=== PATIENT | female | born 1945 | race Caucasian/White ===

== ENCOUNTER 2016-07-26 12:32 | Inpatient (IN) | payer MEDICARE, MEDICAID ==
[~2016-07-26] VITALS: Ht 160 cm; Wt 57.9 kg
[~2016-07-26 12:32] MED LIST: ALBUTEROL SULFAT3 M3 IH; COMPAZINE 110 MG/TAB PO; EFFEXOR 75M75 MG/TAB PO; EFFEXOR XR37.5 MG/CA PO; EFFEXOR-XR150 MG PO; FIORICET 325 MG1 TA1 PO; HEADACHE RELIE1 EACH PO; KLONOPIN 0.5MG0.5 MG PO; KLONOPIN 1MG1 MG PO; MAG-OX 400400 MG/TAB PO; MEDROL 4MG DOSPA4 MG PO; NEURONTIN600 MG/TAB PO; NORCO 325 MG-7.1 TAB PO; PAMELOR 25MG25 MG PO; PREDNISONE10 MG PO; RT SPIRIVA18 MCG IH; SYNTHROID0.088 MG/T PO; SYNTHROID0.1 MG/TAB PO; THE MEDICINE S200 M2 PO; VENTOLIN0.09 MG IH; VERAPAMIL180 MG/TAB PO; ZANAFLEX2 MG PO; ZOCOR 20MG20 MG PO; ZOFRAN 4MG T4 MG/TAB PO
[2016-07-26 12:49] LABS: BASO # 0.1 (0.0-0.2); BASO % 0.6 % (0.0-2.0); EOS # 0.1 (0.0-0.7); EOS % 0.9 % (0-4.0); GRAN # 6.8 (1.4-6.5); GRAN % 59.4 % (42.2-75.2); HEMATOCRIT 47.1 % (37.0-47.0); HEMOGLOBIN 15.3 g/dl (12.5-16.0); LYMPH # 3.5 (1.2-3.4); LYMPH % 30.8 % (20.0-51.0); MEAN CELL VOLUME 94 fl (80.0-100.0); MEAN CORPUSCULAR HEMOGLOBIN 30 pg (27.0-31.0); MEAN CORPUSCULAR HGB CONC 33 g/dl (33.0-37.0); MEAN PLATELET VOLUME 10.9 fl (7.4-10.4); MONO # 0.9 (0.1-0.6); MONO % 7.9 % (1.7-9.3); PLATELET COUNT 289 K/mm3 (130-400); RED BLOOD COUNT 5.03 M/mm3 (4.10-5.30); WHITE BLOOD COUNT 11.4 K/mm3 (4.8-10.8)
[2016-07-26 13:04] LABS: ADJUSTED CALCIUM 10.5 mg/dL (8.4-10.2); ALANINE AMINOTRANSFERASE 40 U/L (9-52); ALBUMIN 4.6 gm/dL (3.5-5.0); ALKALINE PHOSPHATASE 109 U/L (50-136); ANION GAP 10 mmol/L (7-16); BILIRUBIN,TOTAL 0.8 mg/dL (0.0-1.0); BLOOD UREA NITROGEN 22 mg/dL (7-17); C-REACTIVE PROTEIN 2.2 mg/dL (0.0-0.9); CARBON DIOXIDE 31 mmol/L (22-30); CHLORIDE 96 mmol/L (98-107); CREATININE, serum 0.72 mg/dL (0.52-1.25); GLUCOSE 114 mg/dL (74-106); POTASSIUM 4.3 mmol/L (3.4-5.0); SODIUM 137 mmol/L (137-145); TOTAL PROTEIN 8.7 gm/dL (6.4-8.2)
[2016-07-26 13:13] LABS: B-TYPE NATRIURETIC PEPTIDE 66 pg/mL (0-125)
[2016-07-26 13:16] LABS: TROPONIN-I < 0.012 ng/mL (0.000-0.034)
[2016-07-26 15:25] VITALS: BP 132/87; PULSE 109; TEMP 98
[2016-07-26 19:29] VITALS: BP 129/72; PULSE 107; TEMP 98
[2016-07-26 23:23] VITALS: BP 115/75; PULSE 96; TEMP 98.7
[2016-07-27 03:18] VITALS: BP 124/91; PULSE 103; TEMP 98.4
[2016-07-27 07:18] LABS: HEMATOCRIT 42.6 % (37.0-47.0); HEMOGLOBIN 13.9 g/dl (12.5-16.0); MEAN CELL VOLUME 95 fl (80.0-100.0); MEAN CORPUSCULAR HEMOGLOBIN 31 pg (27.0-31.0); MEAN CORPUSCULAR HGB CONC 33 g/dl (33.0-37.0); MEAN PLATELET VOLUME 11.4 fl (7.4-10.4); PLATELET COUNT 288 K/mm3 (130-400); RED BLOOD COUNT 4.51 M/mm3 (4.10-5.30); REDCELL DISTRIBUTION WIDTH-CV 13.2 % (11.5-14.5); WHITE BLOOD COUNT 8.7 K/mm3 (4.8-10.8)
[2016-07-27 07:46] VITALS: BP 134/81; PULSE 113; TEMP 97.8
[2016-07-27 09:28] LABS: CALCIUM 9.2 mg/dL (8.4-10.2); CREATININE, serum 0.48 mg/dL (0.52-1.25); POTASSIUM 3.8 mmol/L (3.4-5.0)
[2016-07-27 12:06] VITALS: BP 129/87; PULSE 105; TEMP 98
[2016-07-27 16:13] VITALS: BP 131/87; PULSE 104; TEMP 97.5
[2016-07-27 19:07] VITALS: BP 126/71; PULSE 87; TEMP 98
[2016-07-27 23:07] VITALS: BP 125/75; PULSE 83; TEMP 98.1
[2016-07-28 03:19] VITALS: BP 134/75; PULSE 104; TEMP 97.7
[2016-07-28 07:29] LABS: HEMATOCRIT 42.1 % (37.0-47.0); HEMOGLOBIN 13.4 g/dl (12.5-16.0); MEAN CELL VOLUME 95 fl (80.0-100.0); MEAN CORPUSCULAR HEMOGLOBIN 30 pg (27.0-31.0); MEAN CORPUSCULAR HGB CONC 32 g/dl (33.0-37.0); MEAN PLATELET VOLUME 11.5 fl (7.4-10.4); PLATELET COUNT 283 K/mm3 (130-400); RED BLOOD COUNT 4.43 M/mm3 (4.10-5.30); REDCELL DISTRIBUTION WIDTH-CV 13.2 % (11.5-14.5); WHITE BLOOD COUNT 12.8 K/mm3 (4.8-10.8)
[2016-07-28 07:37] LABS: CALCIUM 9.8 mg/dL (8.4-10.2); CREATININE, serum 0.6 mg/dL (0.52-1.25); POTASSIUM 3.8 mmol/L (3.4-5.0)
[2016-07-28 07:42] VITALS: BP 131/68; PULSE 96; TEMP 98.1
[2016-07-28 11:31] VITALS: BP 142/96; PULSE 90; TEMP 97.5
[2016-07-28] MEDS ORDERED: OMNICEF 300MG300 MG PO (11:57)
[2016-07-28] MEDS ORDERED: ZITHROMAX 250M250 MG PO (11:57)
[2016-07-28] MEDS ORDERED: PREDNISONE20 MG PO (11:58)
[2016-07-28] MEDS ORDERED: CHERATUSSIN AC120 ML PO (11:59)
== END 2016-07-28 14:30 | disposition home or self-care (01) | DRG 189 ==
LOC: COL.ER 12:32 → MEDICAL 14:17
PROVIDERS: Emergency Medicine; Internal Medicine
DX: J96.21 Acute and chronic respiratory failure with hypoxia (principal); J18.9 Pneumonia, unspecified organism; J44.1 Chronic obstructive pulmonary disease with (acute) exacerbation; E83.52 Hypercalcemia; E78.5 Hyperlipidemia, unspecified; Z87.891 Personal history of nicotine dependence; Z66 Do not resuscitate; Z99.81 Dependence on supplemental oxygen
CPT/HCPCS: 99232-AI; 99239; G0378; J0456; J0696; J1650; J2405; J2920; J2930; J7030; J7512

== ENCOUNTER → 2017-04-03 | Outpatient (CLI) | payer MEDICARE, MEDICAID ==
[~2017-04-03] MED LIST changes: +CHERATUSSIN AC120 ML PO; +OMNICEF 300MG300 MG PO; +PREDNISONE20 MG PO; +ZITHROMAX 250M250 MG PO
== END ==
LOC: MC.RAD 09:54
DX: Z12.31 Encounter for screening mammogram for malignant neoplasm of breast (principal)

== ENCOUNTER 2017-05-27 13:24 | Emergency (ER) | payer MEDICARE, MEDICAID ==
[~2017-05-27] VITALS: Ht 160 cm; Wt 62.3 kg
[2017-05-27 13:36] VITALS: BP 159/103; TEMP 98
[2017-05-27 15:48] LABS: BASO # 0.1 (0.0-0.2); EOS # 0.1 (0.0-0.7); EOS % 1.4 % (0-4.0); GRAN # 3.6 (1.4-6.5); HEMOGLOBIN 15.9 g/dl (12.5-16.0); LYMPH # 3.9 (1.2-3.4); LYMPH % 46.1 % (20.0-51.0); MEAN CELL VOLUME 93 fl (80.0-100.0); MEAN CORPUSCULAR HEMOGLOBIN 30 pg (27.0-31.0); MEAN CORPUSCULAR HGB CONC 32 g/dl (33.0-37.0); MEAN PLATELET VOLUME 10.8 fl (7.4-10.4); MONO # 0.7 (0.1-0.6); MONO % 8.3 % (1.7-9.3); PLATELET COUNT 293 K/mm3 (130-400); RED BLOOD COUNT 5.25 M/mm3 (4.10-5.30); WHITE BLOOD COUNT 8.4 K/mm3 (4.8-10.8)
[2017-05-27 15:53] LABS: ADJUSTED CALCIUM 8.8 mg/dL (8.4-10.2); ALBUMIN 5.5 gm/dL (3.5-5.0); BILIRUBIN,TOTAL 0.9 mg/dL (0.0-1.0); CREATININE, serum 0.78 mg/dL (0.52-1.25); POTASSIUM 3.6 mmol/L (3.4-5.0); TOTAL PROTEIN 9.2 gm/dL (6.4-8.2)
[2017-05-27 16:04] LABS: INFLUENZA A NEGATIVE; INFLUENZA B NEGATIVE
[2017-05-27] MEDS ORDERED: ZOFRAN ODT4 MG PO (16:26)
[2017-05-27 17:20] VITALS: PULSE 79
== END 2017-05-27 17:20 | disposition home or self-care (01) ==
LOC: COL.ER 13:24
PROVIDERS: Emergency Medicine
DX: J44.9 Chronic obstructive pulmonary disease, unspecified (principal); Z98.51 Tubal ligation status; Z87.891 Personal history of nicotine dependence
CPT/HCPCS: J2405; J7030

== ENCOUNTER 2017-06-09 11:25 | Emergency (ER) | payer MEDICARE, MEDICAID ==
[~2017-06-09] VITALS: Ht 160 cm; Wt 62.3 kg
[~2017-06-09 11:25] MED LIST changes: +ZOFRAN ODT4 MG PO
[2017-06-09 11:27] VITALS: TEMP 98.1
[2017-06-09 12:42] LABS: BASO # 0.1 (0.0-0.2); BASO % 0.8 % (0.0-2.0); EOS # 0.1 (0.0-0.7); EOS % 1.1 % (0-4.0); GRAN # 5.2 (1.4-6.5); GRAN % 56.4 % (42.2-75.2); HEMATOCRIT 50.2 % (37.0-47.0); HEMOGLOBIN 16.4 g/dl (12.5-16.0); LYMPH # 3.2 (1.2-3.4); LYMPH % 34.3 % (20.0-51.0); MEAN CELL VOLUME 95 fl (80.0-100.0); MEAN CORPUSCULAR HEMOGLOBIN 31 pg (27.0-31.0); MEAN CORPUSCULAR HGB CONC 33 g/dl (33.0-37.0); MONO # 0.7 (0.1-0.6); MONO % 7.2 % (1.7-9.3); PLATELET COUNT 243 K/mm3 (130-400); RED BLOOD COUNT 5.28 M/mm3 (4.10-5.30); WHITE BLOOD COUNT 9.2 K/mm3 (4.8-10.8)
[2017-06-09 13:25] LABS: ADJUSTED CALCIUM 8.9 mg/dL (8.4-10.2); ALANINE AMINOTRANSFERASE 39 U/L (9-52); ALBUMIN 4.9 gm/dL (3.5-5.0); ALKALINE PHOSPHATASE 91 U/L (50-136); ANION GAP 8 mmol/L (7-16); BILIRUBIN,TOTAL 0.7 mg/dL (0.0-1.0); BLOOD UREA NITROGEN 13 mg/dL (7-17); CALCIUM 9.6 mg/dL (8.4-10.2); CARBON DIOXIDE 34 mmol/L (22-30); CHLORIDE 91 mmol/L (98-107); GLUCOSE 108 mg/dL (74-106); POTASSIUM 4.3 mmol/L (3.4-5.0); SODIUM 134 mmol/L (137-145); TOTAL PROTEIN 8.3 gm/dL (6.4-8.2)
[2017-06-09 13:40] LABS: TROPONIN-I < 0.012 ng/mL (0.000-0.034)
[2017-06-09 14:35] VITALS: BP 152/77; PULSE 88
== END 2017-06-09 14:36 | disposition home or self-care (01) ==
LOC: COL.ER 11:25
PROVIDERS: Emergency Medicine; Nurse Practitioner Primary Care
DX: G43.909 Migraine, unspecified, not intractable, without status migrainosus (principal); J44.9 Chronic obstructive pulmonary disease, unspecified; E03.9 Hypothyroidism, unspecified; Z87.891 Personal history of nicotine dependence
CPT/HCPCS: J1170; J2550; J7030

== ENCOUNTER 2017-09-10 06:47 | Outpatient (CLI) | payer MEDICARE, MEDICAID ==
[~2017-09-10] VITALS: Ht 157.5 cm; Wt 62.9 kg
[2017-09-10] VITALS (17 sets, daily range): BP systolic 109–149; BP diastolic 69–101; PULSE 88–100
[~2017-09-10 06:47] MED LIST changes: +ASPIRIN E.C. 8181 MG PO; +DEPAKOTE 250MG250 MG PO; +INCRUSE EL62.5 MCG/A IH; +MAGNESIUM250 M1 PO; +PROAIR HFA0.09 MG/AC IH
== END 2017-09-10 12:52 | disposition home or self-care (01) ==
LOC: COL.RAD 06:47
DX: C34.31 Malignant neoplasm of lower lobe, right bronchus or lung (principal)
CPT/HCPCS: J3010

== ENCOUNTER → 2017-10-12 | Outpatient (CLI) | payer MEDICARE, MEDICAID | LOC: COL.PUL 07:35 | DX: Z01.811 Encounter for preprocedural respiratory examination (principal); C34.31 Malignant neoplasm of lower lobe, right bronchus or lung; J44.9 Chronic obstructive pulmonary disease, unspecified; I10 Essential (primary) hypertension ==

== ENCOUNTER 2017-11-12 06:13 | Emergency (ER) | payer MEDICARE, MEDICAID ==
[~2017-11-12] VITALS: Ht 160 cm; Wt 60.5 kg
[2017-11-12 06:18] VITALS: TEMP 98.3
[2017-11-12 06:54] LABS: HEMOGLOBIN 11.4 g/dl (12.5-16.0); MEAN CELL VOLUME 94 fl (80.0-100.0); MEAN CORPUSCULAR HEMOGLOBIN 31 pg (27.0-31.0); MEAN CORPUSCULAR HGB CONC 33 g/dl (33.0-37.0); MEAN PLATELET VOLUME 9.5 fl (7.4-10.4); PLATELET COUNT 278 K/mm3 (130-400); RED BLOOD COUNT 3.67 M/mm3 (4.10-5.30); REDCELL DISTRIBUTION WIDTH-CV 13.2 % (11.5-14.5)
[2017-11-12 06:56] LABS: HEMATOCRIT 34.6 % (37.0-47.0)
[2017-11-12 07:02] LABS: ALBUMIN 3.8 gm/dL (3.5-5.0); BILIRUBIN,TOTAL 0.6 mg/dL (0.0-1.0); CALCIUM 9.1 mg/dL (8.4-10.2); CREATININE, serum 0.49 mg/dL (0.52-1.25); MAGNESIUM 1.6 mg/dL (1.6-2.3); TOTAL PROTEIN 7.6 gm/dL (6.4-8.2)
[2017-11-12 07:25] LABS: BAND 8 % (0-10); EOSINOPHIL 3 % (0-4); LYMPHOCYTE 19 % (20.0-51.0); NEUTROPHILS 68 % (42.0-75.2)
[2017-11-12 07:26] LABS: HYPOCHROMIA 1+; PLATELET ESTIMATE NORMAL (NORMAL)
[2017-11-12 07:27] LABS: STOMATOCYTE 1+
[2017-11-12 07:47] LABS: COLLECTION METHOD CLEAN CATCH
[2017-11-12 07:53] LABS: MUCOUS Present /lpf; PH 7 (5-8); SQUAMOUS EPITHELIAL 0-2 /hpf; URINE APPEARANCE Clear; URINE BACTERIA None Seen /hpf; URINE BILIRUBIN Negative (NEGATIVE); URINE BLOOD Negative (NEGATIVE); URINE COLOR Yellow; URINE GLUCOSE Negative (NEGATIVE); URINE KETONE 1+ (NEGATIVE); URINE LEUKOCYTE ESTERASE Negative (NEGATIVE); URINE NITRATE Negative (NEGATIVE); URINE PROTEIN(semi-quant) Negative (NEGATIVE); URINE RBC 0-2 /hpf; URINE UROBILINOGEN Negative (NEGATIVE)
[2017-11-12] MEDS ORDERED: ZOFRAN 4MG T4 MG/TAB PO (09:48)
[2017-11-12] MEDS ORDERED: K-DUR20 MEQ PO (09:50)
[2017-11-12 10:30] VITALS: BP 137/91; PULSE 95
== END 2017-11-12 11:00 | disposition home or self-care (01) ==
LOC: COL.ER 06:13
PROVIDERS: Emergency Medicine
DX: C34.90 Malignant neoplasm of unspecified part of unspecified bronchus or lung (principal); E87.6 Hypokalemia; J44.9 Chronic obstructive pulmonary disease, unspecified; K21.9 Gastro-esophageal reflux disease without esophagitis; G43.909 Migraine, unspecified, not intractable, without status migrainosus; E78.5 Hyperlipidemia, unspecified; Z98.51 Tubal ligation status; Z87.891 Personal history of nicotine dependence
CPT/HCPCS: J1100; J1644; J2060; J2405; J2765; J3010; J3480; J7030

== ENCOUNTER 2017-12-19 09:06 | Emergency (ER) | payer MEDICARE, MEDICAID ==
[~2017-12-19] VITALS: Ht 7.6 cm; Wt 53.2 kg
[~2017-12-19 09:06] MED LIST changes: +K-DUR20 MEQ PO
[2017-12-19 09:15] VITALS: TEMP 98.2
[2017-12-19 10:00] LABS: BASO # 0.1 (0.0-0.2); BASO % 0.7 % (0.0-2.0); EOS % 0.5 % (0-4.0); GRAN % 54.7 % (42.2-75.2); HEMATOCRIT 39.6 % (37.0-47.0); LYMPH # 2.2 (1.2-3.4); LYMPH % 30.6 % (20.0-51.0); MEAN CELL VOLUME 100 fl (80.0-100.0); MEAN CORPUSCULAR HEMOGLOBIN 33 pg (27.0-31.0); MEAN CORPUSCULAR HGB CONC 33 g/dl (33.0-37.0); MEAN PLATELET VOLUME 9.4 fl (7.4-10.4); PLATELET COUNT 207 K/mm3 (130-400); RED BLOOD COUNT 3.96 M/mm3 (4.10-5.30); REDCELL DISTRIBUTION WIDTH-CV 17.4 % (11.5-14.5)
[2017-12-19 10:02] LABS: COLLECTION METHOD CLEAN CATCH
[2017-12-19 10:15] LABS: ALANINE AMINOTRANSFERASE 35 U/L (9-52); ALBUMIN 4.6 gm/dL (3.5-5.0); ALKALINE PHOSPHATASE 101 U/L (50-136); ANION GAP 16 mmol/L (7-16); AST,SGOT 39 U/L (15-37); BILIRUBIN,TOTAL 0.7 mg/dL (0.0-1.0); BLOOD UREA NITROGEN 10 mg/dL (7-17); C-REACTIVE PROTEIN 1.2 mg/dL (0.0-0.9); CALCIUM 10.4 mg/dL (8.4-10.2); CARBON DIOXIDE 32 mmol/L (22-30); CHLORIDE 91 mmol/L (98-107); CREATININE, serum 0.67 mg/dL (0.52-1.25); GLUCOSE 134 mg/dL (74-106); POTASSIUM 4.6 mmol/L (3.4-5.0); SODIUM 139 mmol/L (137-145); TOTAL PROTEIN 9.1 gm/dL (6.4-8.2)
[2017-12-19 10:24] LABS: LIPASE 17 U/L (23-300)
[2017-12-19 10:24] LABS: MUCOUS Present /lpf; PH 6 (5-8); URINE APPEARANCE Hazy; URINE BACTERIA None Seen /hpf; URINE BILIRUBIN Negative (NEGATIVE); URINE BLOOD Negative (NEGATIVE); URINE COLOR Yellow; URINE GLUCOSE Negative (NEGATIVE); URINE KETONE 1+ (NEGATIVE); URINE LEUKOCYTE ESTERASE 2+ (NEGATIVE); URINE NITRATE Negative (NEGATIVE); URINE PROTEIN(semi-quant) 1+ (NEGATIVE); URINE RBC 0-2 /hpf
[2017-12-19 10:39] LABS: TROPONIN-I < 0.012 ng/mL (0.000-0.034)
[2017-12-19] MEDS ORDERED: ZOFRAN 4MG T4 MG/TAB PO (11:01)
[2017-12-19 11:57] VITALS: BP 125/86; PULSE 102
[2017-12-19] MEDS ORDERED: EXCEDRIN1 TAB PO (15:39)
[2017-12-19] MEDS ORDERED: BENADRYL25 M2 PO (15:40)
[2017-12-19] MEDS ORDERED: IBU800 M1 PO (15:40)
[2017-12-19] MEDS ORDERED: PAMELOR75 MG PO (15:41)
[2017-12-19] MEDS ORDERED: COMPAZINE 110 MG/TAB PO (15:42)
[2017-12-19] MEDS ORDERED: RT SPIRIVA18 MCG IH (15:43)
[2017-12-19] MEDS ORDERED: ZANAFLEX2 MG PO (15:44)
[2017-12-19] MEDS ORDERED: EFFEXOR-XR150 MG PO (15:45)
[2017-12-19] MEDS ORDERED: VERAPAMIL180 MG/TAB PO (15:45)
[2017-12-19] MEDS ORDERED: KETOROLAC30 MG/ML (15:47)
[2017-12-19] MEDS ORDERED: MAG-OX 400400 MG/TAB PO (15:47)
[2017-12-19] MEDS ORDERED: BOTOX200 U (15:48)
[2017-12-22] MEDS ORDERED: LEVAQUIN 750MG750 M1 PO (08:47)
== END 2017-12-19 12:03 | disposition home or self-care (01) ==
LOC: COL.ER 09:06
PROVIDERS: Emergency Medicine
DX: R11.2 Nausea with vomiting, unspecified (principal); I10 Essential (primary) hypertension; R10.9 Unspecified abdominal pain; J44.9 Chronic obstructive pulmonary disease, unspecified; F41.9 Anxiety disorder, unspecified; F32.9 Major depressive disorder, single episode, unspecified; Z87.891 Personal history of nicotine dependence; Z85.118 Personal history of other malignant neoplasm of bronchus and lung
CPT/HCPCS: J2060; J2405; J7030

== ENCOUNTER 2018-01-31 08:48 | Emergency (ER) | payer MEDICARE, MEDICAID ==
[~2018-01-31] VITALS: Ht 157.5 cm; Wt 55.0 kg
[~2018-01-31 08:48] MED LIST changes: +BENADRYL25 M2 PO; +BOTOX200 U; +EXCEDRIN1 TAB PO; +IBU800 M1 PO; +KETOROLAC30 MG/ML; +LEVAQUIN 750MG750 M1 PO; +PAMELOR75 MG PO
[2018-01-31 08:51] VITALS: TEMP 97.7
[2018-01-31 09:30] LABS: BASO % 0.4 % (0.0-2.0); EOS # 0.1 (0.0-0.7); EOS % 0.9 % (0-4.0); GRAN # 5.1 (1.4-6.5); HEMOGLOBIN 12.7 g/dl (12.5-16.0); LYMPH # 1.6 (1.2-3.4); LYMPH % 20.8 % (20.0-51.0); MEAN CELL VOLUME 97 fl (80.0-100.0); MEAN CORPUSCULAR HEMOGLOBIN 33 pg (27.0-31.0); MEAN CORPUSCULAR HGB CONC 33 g/dl (33.0-37.0); MEAN PLATELET VOLUME 9.9 fl (7.4-10.4); MONO # 0.9 (0.1-0.6); MONO % 11.5 % (1.7-9.3); PLATELET COUNT 243 K/mm3 (130-400); REDCELL DISTRIBUTION WIDTH-CV 12.5 % (11.5-14.5)
[2018-01-31 09:37] LABS: ALBUMIN 4.4 gm/dL (3.5-5.0); BILIRUBIN,TOTAL 0.6 mg/dL (0.0-1.0); CALCIUM 10.2 mg/dL (8.4-10.2); CREATININE, serum 0.55 mg/dL (0.52-1.25); POTASSIUM 4.1 mmol/L (3.4-5.0); TOTAL PROTEIN 8.1 gm/dL (6.4-8.2)
[2018-01-31] MEDS ORDERED: ZOFRAN 4MG T4 MG/TAB PO (11:36)
[2018-01-31 12:07] VITALS: BP 140/94; PULSE 94
== END 2018-01-31 12:30 | disposition home or self-care (01) ==
LOC: COL.ER 08:48
PROVIDERS: Emergency Medicine
DX: G43.909 Migraine, unspecified, not intractable, without status migrainosus (principal); R11.10 Vomiting, unspecified; J44.9 Chronic obstructive pulmonary disease, unspecified; C34.91 Malignant neoplasm of unspecified part of right bronchus or lung
CPT/HCPCS: J1200; J1885; J2765; J7030

== ENCOUNTER 2018-02-10 14:18 | Outpatient (CLI) | payer MEDICARE, MEDICAID ==
[~2018-02-10] VITALS: Ht 157.5 cm; Wt 47.2 kg
[~2018-02-10 14:18] MED LIST changes: +PHENERGAN 25 TA25 MG PO
[2018-02-10 14:54] VITALS: BP 146/89; PULSE 95; TEMP 97.7
== END 2018-02-10 17:00 | disposition home or self-care (01) ==
LOC: EUO 14:18
DX: R11.2 Nausea with vomiting, unspecified (principal); E86.0 Dehydration
CPT/HCPCS: J7030

== ENCOUNTER 2018-02-22 12:12 | Observation (INO) | payer MEDICARE, MEDICAID ==
[~2018-02-22] VITALS: Ht 160 cm; Wt 53.6 kg
[2018-02-22 13:44] LABS: BASO % 0.5 % (0.0-2.0); EOS # 0.1 (0.0-0.7); EOS % 1.3 % (0-4.0); GRAN # 6.5 (1.4-6.5); GRAN % 75.7 % (42.2-75.2); HEMATOCRIT 35.4 % (37.0-47.0); HEMOGLOBIN 12.3 g/dl (12.5-16.0); LYMPH # 1.2 (1.2-3.4); LYMPH % 14.3 % (20.0-51.0); MEAN CELL VOLUME 92 fl (80.0-100.0); MEAN CORPUSCULAR HEMOGLOBIN 32 pg (27.0-31.0); MEAN CORPUSCULAR HGB CONC 35 g/dl (33.0-37.0); MEAN PLATELET VOLUME 9.5 fl (7.4-10.4); MONO # 0.7 (0.1-0.6); MONO % 7.9 % (1.7-9.3); PLATELET COUNT 301 K/mm3 (130-400); RED BLOOD COUNT 3.86 M/mm3 (4.10-5.30); REDCELL DISTRIBUTION WIDTH-CV 12.4 % (11.5-14.5)
[2018-02-22 13:53] LABS: INR 1.1 (0.8-3.0); PROTHROMBIN TIME 12.7 SECONDS (9.7-12.8)
[2018-02-22 13:55] LABS: PARTIAL THROMBOPLASTIN TIME 37.3 SECONDS (26.0-37.0)
[2018-02-22 13:56] LABS: ALBUMIN 4.1 gm/dL (3.5-5.0); BILIRUBIN,TOTAL 0.4 mg/dL (0.0-1.0); CALCIUM 9.4 mg/dL (8.4-10.2); CREATININE, serum 0.59 mg/dL (0.52-1.25); MAGNESIUM 1.9 mg/dL (1.6-2.3); PHOSPHOROUS 3.4 mg/dL (2.5-4.5); TOTAL PROTEIN 7.8 gm/dL (6.4-8.2)
[2018-02-22 14:34] LABS: VALPROIC ACID (DEPAKENE) 10.5 ug/mL (50.0-100.0)
[2018-02-22 16:21] VITALS: BP 148/84; PULSE 98; TEMP 97.4
[2018-02-22 19:22] VITALS: BP 118/83; PULSE 95; TEMP 98.4
[2018-02-22 23:27] VITALS: BP 105/69; PULSE 89; TEMP 98.2
[2018-02-23 03:25] VITALS: BP 94/53; PULSE 82; TEMP 97.3
[2018-02-23 07:33] VITALS: BP 101/53; PULSE 87; TEMP 98.1
[2018-02-23 08:03] LABS: BASO % 0.4 % (0.0-2.0); EOS # 0.1 (0.0-0.7); EOS % 2.6 % (0-4.0); GRAN # 3.4 (1.4-6.5); GRAN % 63.8 % (42.2-75.2); LYMPH # 1.2 (1.2-3.4); LYMPH % 22.6 % (20.0-51.0); MEAN CELL VOLUME 94 fl (80.0-100.0); MEAN CORPUSCULAR HGB CONC 34 g/dl (33.0-37.0); MEAN PLATELET VOLUME 9.7 fl (7.4-10.4); MONO # 0.5 (0.1-0.6); MONO % 10.2 % (1.7-9.3); PLATELET COUNT 243 K/mm3 (130-400); RED BLOOD COUNT 3.16 M/mm3 (4.10-5.30); REDCELL DISTRIBUTION WIDTH-CV 12.6 % (11.5-14.5)
[2018-02-23 08:14] LABS: HEMATOCRIT 29.8 % (37.0-47.0); MEAN CORPUSCULAR HEMOGLOBIN 32 pg (27.0-31.0)
[2018-02-23 08:18] LABS: CALCIUM 8.2 mg/dL (8.4-10.2); CREATININE, serum 0.54 mg/dL (0.52-1.25); POTASSIUM 3.9 mmol/L (3.4-5.0)
[2018-02-23 11:40] VITALS: BP 107/66; PULSE 96; TEMP 98.6
[2018-02-23 16:54] VITALS: BP 111/66; PULSE 83; TEMP 98.6
[2018-02-23 20:02] VITALS: BP 103/67; PULSE 83; TEMP 98.6
[2018-02-24 00:34] VITALS: BP 123/70; PULSE 84; TEMP 98.1
[2018-02-24 03:29] VITALS: BP 122/72; PULSE 91; TEMP 98.1
[2018-02-24 06:52] VITALS: BP 123/82; PULSE 92; TEMP 98.8
[2018-02-24 08:47] LABS: CALCIUM 8.9 mg/dL (8.4-10.2); CREATININE, serum 0.52 mg/dL (0.52-1.25); POTASSIUM 4.1 mmol/L (3.4-5.0)
== END 2018-02-24 11:14 | disposition home or self-care (01) ==
LOC: COL.ER 12:12 → MEDICAL 14:34
PROVIDERS: Emergency Medicine; Family Medicine
DX: E87.1 Hypo-osmolality and hyponatremia (principal); E87.8 Other disorders of electrolyte and fluid balance, not elsewhere classified; E86.0 Dehydration; R11.2 Nausea with vomiting, unspecified; C34.90 Malignant neoplasm of unspecified part of unspecified bronchus or lung; G43.909 Migraine, unspecified, not intractable, without status migrainosus; J44.9 Chronic obstructive pulmonary disease, unspecified; E03.9 Hypothyroidism, unspecified; Z92.21 Personal history of antineoplastic chemotherapy; Z92.3 Personal history of irradiation; F32.9 Major depressive disorder, single episode, unspecified; Z87.891 Personal history of nicotine dependence; G47.33 Obstructive sleep apnea (adult) (pediatric); E78.5 Hyperlipidemia, unspecified
CPT/HCPCS: G0378; J1200; J1644; J1885; J2550; J3475; J7030

== ENCOUNTER 2018-02-26 11:41 | Outpatient (CLI) | payer MEDICARE, MEDICAID ==
[2018-02-26 12:19] LABS: CALCIUM 9.6 mg/dL (8.4-10.2); CREATININE, serum 0.54 mg/dL (0.52-1.25); POTASSIUM 3.8 mmol/L (3.4-5.0)
[2018-02-26 13:36] VITALS: BP 123/81; PULSE 92; TEMP 97.7
== END 2018-02-26 15:24 | disposition home or self-care (01) ==
LOC: EUO 11:41
PROVIDERS: Family Medicine
DX: C34.90 Malignant neoplasm of unspecified part of unspecified bronchus or lung (principal); J44.9 Chronic obstructive pulmonary disease, unspecified; E87.1 Hypo-osmolality and hyponatremia
CPT/HCPCS: J7030

== ENCOUNTER 2018-03-11 15:25 | Outpatient (CLI) | payer MEDICARE, MEDICAID ==
[~2018-03-11 15:25] MED LIST changes: +MIRTAZAPINE7.5 MG PO; +MULTI VITAMINS1 TAB PO; +PROTONIX 40MG T40 MG PO
[2018-03-11 16:16] VITALS: BP 131/78; PULSE 83; TEMP 99
== END 2018-03-11 17:37 | disposition home or self-care (01) ==
LOC: EUO 15:25
DX: E86.0 Dehydration (principal)
CPT/HCPCS: J1644; J7030

== ENCOUNTER 2018-03-13 09:54 | Outpatient (CLI) | payer MEDICARE, MEDICAID ==
[~2018-03-13] VITALS: Ht 160 cm; Wt 51.0 kg
[2018-03-13 11:24] VITALS: BP 141/92; PULSE 91; TEMP 98.2
== END 2018-03-13 12:00 | disposition home or self-care (01) ==
LOC: EUO 09:54
DX: E86.0 Dehydration (principal)
CPT/HCPCS: J7040

== ENCOUNTER 2018-05-21 09:28 | Emergency (ER) | payer MEDICARE, MEDICAID ==
[~2018-05-21] VITALS: Ht 160 cm; Wt 50.0 kg
[2018-05-21 09:34] VITALS: TEMP 98.5
[2018-05-21] MEDS ORDERED: TRELEGY ELLIPT1 EACH IH (10:10)
[2018-05-21] MEDS ORDERED: PROAMATINE2.5 MG PO (10:11)
[2018-05-21] MEDS ORDERED: PROTONIX 40MG T40 MG PO (10:14)
[2018-05-21] MEDS ORDERED: CORTEF 10MG TAB10 MG PO (10:14)
[2018-05-21] MEDS ORDERED: MEGACE ORAL40 MG/ML PO (10:23)
[2018-05-21] MEDS ORDERED: FLORINEF ACETA0.1 MG PO (10:25)
[2018-05-21] MEDS ORDERED: ROBAXIN 50500 MG/TAB PO (10:30)
[2018-05-21] MEDS ORDERED: MIRALAX PA17 GM/Dose PO (10:34)
[2018-05-21] MEDS ORDERED: PRAVACHOL 40MG40 MG PO (10:35)
[2018-05-21] MEDS ORDERED: COLACE 100100 MG/CAP PO (10:37)
[2018-05-21] MEDS ORDERED: SYNTHROID0.1 MG/TAB PO (10:39)
[2018-05-21] MEDS ORDERED: MUCUS RELIEF200 MG PO (10:40)
[2018-05-21] MEDS ORDERED: K-TAB10 (10:41)
[2018-05-21] MEDS ORDERED: TYLENOL 325MG325 MG PO (10:42)
[2018-05-21 10:52] LABS: BASO % 0.4 % (0.0-2.0); EOS # 0.1 (0.0-0.7); EOS % 1.3 % (0-4.0); GRAN # 6.3 (1.4-6.5); GRAN % 65.6 % (42.2-75.2); HEMATOCRIT 40.6 % (37.0-47.0); HEMOGLOBIN 12.9 g/dl (12.5-16.0); LYMPH # 2.1 (1.2-3.4); LYMPH % 21.8 % (20.0-51.0); MEAN CELL VOLUME 95 fl (80.0-100.0); MEAN CORPUSCULAR HEMOGLOBIN 30 pg (27.0-31.0); MEAN CORPUSCULAR HGB CONC 32 g/dl (33.0-37.0); MEAN PLATELET VOLUME 10.4 fl (7.4-10.4); MONO % 10.2 % (1.7-9.3); PLATELET COUNT 294 K/mm3 (130-400); RED BLOOD COUNT 4.29 M/mm3 (4.10-5.30); REDCELL DISTRIBUTION WIDTH-CV 14.6 % (11.5-14.5)
[2018-05-21 10:56] LABS: INR 1.3 (0.8-3.0); PROTHROMBIN TIME 14.6 SECONDS (9.7-12.8)
[2018-05-21 11:02] LABS: ALBUMIN 4.3 gm/dL (3.5-5.0); BILIRUBIN,TOTAL 0.4 mg/dL (0.0-1.0); CALCIUM 10.8 mg/dL (8.4-10.2); CREATININE, serum 0.61 mg/dL (0.52-1.25); TOTAL PROTEIN 8.3 gm/dL (6.4-8.2)
[2018-05-21 14:33] VITALS: BP 126/95; PULSE 111
== END 2018-05-21 14:40 | disposition home or self-care (01) ==
LOC: COL.ER 09:28
PROVIDERS: Emergency Medicine
DX: S70.02XA Contusion of left hip, initial encounter (principal); J44.9 Chronic obstructive pulmonary disease, unspecified; F17.210 Nicotine dependence, cigarettes, uncomplicated; Z85.118 Personal history of other malignant neoplasm of bronchus and lung; Z79.51 Long term (current) use of inhaled steroids; W19.XXXA Unspecified fall, initial encounter; Y92.009 Unspecified place in unspecified non-institutional (private) residence as the place of occurrence of the external cause

== ENCOUNTER → 2018-09-03 | Outpatient (CLI) | payer MEDICARE, MEDICAID ==
[~2018-09-03] MED LIST changes: +COLACE 100100 MG/CAP PO; +CORTEF 10MG TAB10 MG PO; +FLORINEF ACETA0.1 MG PO; +K-TAB10; +MEGACE ORAL40 MG/ML PO; +MIRALAX PA17 GM/Dose PO; +MUCUS RELIEF200 MG PO; +PRAVACHOL 40MG40 MG PO; +PROAMATINE2.5 MG PO; +ROBAXIN 50500 MG/TAB PO; +TRELEGY ELLIPT1 EACH IH; +TYLENOL 325MG325 MG PO
== END ==
LOC: ZCOL.LAB 15:30
DX: E03.9 Hypothyroidism, unspecified (principal)

== ENCOUNTER → 2018-09-13 | Outpatient (CLI) | payer MEDICARE, MEDICAID ==
[2018-09-13 11:30] LABS: BASO # 0.1 (0.0-0.2); BASO % 0.7 % (0.0-2.0); EOS # 0.1 (0.0-0.7); EOS % 1.7 % (0-4.0); GRAN # 3.6 (1.4-6.5); GRAN % 51.4 % (42.2-75.2); HEMATOCRIT 37.9 % (37.0-47.0); HEMOGLOBIN 12.1 g/dl (12.5-16.0); LYMPH # 2.5 (1.2-3.4); LYMPH % 35.7 % (20.0-51.0); MEAN CELL VOLUME 93 fl (80.0-100.0); MEAN CORPUSCULAR HEMOGLOBIN 30 pg (27.0-31.0); MEAN CORPUSCULAR HGB CONC 32 g/dl (33.0-37.0); MEAN PLATELET VOLUME 10.5 fl (7.4-10.4); MONO # 0.7 (0.1-0.6); MONO % 10.1 % (1.7-9.3); PLATELET COUNT 293 K/mm3 (130-400); RED BLOOD COUNT 4.06 M/mm3 (4.10-5.30); REDCELL DISTRIBUTION WIDTH-CV 14.6 % (11.5-14.5)
[2018-09-13 11:34] LABS: ALBUMIN 3.9 gm/dL (3.5-5.0); BILIRUBIN,TOTAL 0.3 mg/dL (0.0-1.0); CALCIUM 10.3 mg/dL (8.4-10.2); CREATININE, serum 0.68 mg/dL (0.52-1.25); POTASSIUM 4.4 mmol/L (3.4-5.0); TOTAL PROTEIN 7.2 gm/dL (6.4-8.2)
== END ==
LOC: ZCOL.LAB 11:12
PROVIDERS: Internal Medicine
DX: C34.90 Malignant neoplasm of unspecified part of unspecified bronchus or lung (principal)

== ENCOUNTER → 2018-10-29 | Outpatient (CLI) | payer MEDICARE, MEDICAID ==
[2018-10-30 10:15] LABS: COLLECTION METHOD CLEAN CATCH
[2018-10-30 10:48] LABS: MUCOUS Present /lpf; PH 5 (5-8); SQUAMOUS EPITHELIAL 0-2 /hpf; URINE APPEARANCE Hazy; URINE BACTERIA None Seen /hpf; URINE BILIRUBIN Negative (NEGATIVE); URINE BLOOD Negative (NEGATIVE); URINE CALCIUM OXALATE CRYSTAL Present /hpf; URINE COLOR Yellow; URINE GLUCOSE Negative (NEGATIVE); URINE KETONE Negative (NEGATIVE); URINE LEUKOCYTE ESTERASE Negative (NEGATIVE); URINE NITRATE Negative (NEGATIVE); URINE PROTEIN(semi-quant) Negative (NEGATIVE); URINE UROBILINOGEN Negative (NEGATIVE)
== END ==
LOC: ZCOL.LAB 21:18
PROVIDERS: Internal Medicine
DX: Z01.89 Encounter for other specified special examinations (principal)

== ENCOUNTER → 2018-10-30 | Outpatient (REF) ==
[2018-10-30 14:11] LABS: BASO # 0.1 (0.0-0.2); BASO % 0.5 % (0.0-2.0); EOS # 0.1 (0.0-0.7); EOS % 0.7 % (0-4.0); GRAN # 8.2 (1.4-6.5); GRAN % 77.7 % (42.2-75.2); HEMATOCRIT 38.7 % (37.0-47.0); HEMOGLOBIN 12.2 g/dl (12.5-16.0); LYMPH # 1.6 (1.2-3.4); LYMPH % 14.6 % (20.0-51.0); MEAN CELL VOLUME 94 fl (80.0-100.0); MEAN CORPUSCULAR HEMOGLOBIN 30 pg (27.0-31.0); MEAN CORPUSCULAR HGB CONC 32 g/dl (33.0-37.0); MEAN PLATELET VOLUME 10.3 fl (7.4-10.4); MONO # 0.7 (0.1-0.6); MONO % 6.1 % (1.7-9.3); PLATELET COUNT 276 K/mm3 (130-400); RED BLOOD COUNT 4.11 M/mm3 (4.10-5.30); REDCELL DISTRIBUTION WIDTH-CV 13.8 % (11.5-14.5)
[2018-10-30 14:26] LABS: ALBUMIN 4.2 gm/dL (3.5-5.0); BILIRUBIN,TOTAL 0.4 mg/dL (0.0-1.0); CALCIUM 10.3 mg/dL (8.4-10.2); CREATININE, serum 0.74 (0.52-1.25); TOTAL PROTEIN 7.6 gm/dL (6.4-8.2)
== END ==
LOC: ZCOL.LAB 12:45
PROVIDERS: Internal Medicine
DX: R41.82 Altered mental status, unspecified (principal)

== ENCOUNTER 2019-07-28 05:20 | Emergency (ER) | payer MEDICARE, MEDICAID ==
[~2019-07-28] VITALS: Ht 160 cm; Wt 67.7 kg
[2019-07-28 05:28] VITALS: TEMP 97.6
[2019-07-28 05:56] LABS: BASO # 0.1 (0.0-0.2); BASO % 0.6 % (0.0-2.0); EOS # 0.3 (0.0-0.7); EOS % 2.5 % (0-4.0); GRAN # 6.3 (1.4-6.5); GRAN % 60.8 % (42.2-75.2); HEMATOCRIT 38.9 % (37.0-47.0); HEMOGLOBIN 12.5 g/dl (12.5-16.0); LYMPH # 2.6 (1.2-3.4); LYMPH % 25.5 % (20.0-51.0); MEAN CELL VOLUME 96 fl (80.0-100.0); MEAN CORPUSCULAR HEMOGLOBIN 31 pg (27.0-31.0); MEAN CORPUSCULAR HGB CONC 32 g/dl (33.0-37.0); MEAN PLATELET VOLUME 10.2 fl (7.4-10.4); MONO % 10.1 % (1.7-9.3); PLATELET COUNT 264 K/mm3 (130-400); RED BLOOD COUNT 4.06 M/mm3 (4.10-5.30); REDCELL DISTRIBUTION WIDTH-CV 13.2 % (11.5-14.5)
[2019-07-28 05:58] LABS: INR 1.1 (0.8-3.0); PROTHROMBIN TIME 12.8 SECONDS (9.7-12.8)
[2019-07-28] MEDS ORDERED: ANORO IH (06:01)
[2019-07-28] MEDS ORDERED: HALDOL ORAL 22 MG/ML PO (06:05)
[2019-07-28] MEDS ORDERED: MOBIC 7.5MG7.5 MG PO (06:07)
[2019-07-28 06:08] LABS: ALANINE AMINOTRANSFERASE 28 U/L (9-52); ALBUMIN 4.7 gm/dL (3.5-5.0); ALKALINE PHOSPHATASE 94 U/L (50-136); ANION GAP 9 mmol/L (7-16); AST,SGOT 24 U/L (15-37); BILIRUBIN,TOTAL 0.5 mg/dL (0.0-1.0); BLOOD UREA NITROGEN 17 mg/dL (7-17); CALCIUM 9.5 mg/dL (8.4-10.2); CARBON DIOXIDE 31 mmol/L (22-30); CHLORIDE 99 mmol/L (98-107); CREATININE, serum 0.73 (0.52-1.25); GLUCOSE 102 mg/dL (74-106); POTASSIUM 3.6 mmol/L (3.4-5.0); SODIUM 139 mmol/L (137-145); TOTAL PROTEIN 8.2 gm/dL (6.4-8.2)
[2019-07-28] MEDS ORDERED: MORPHINE 1515 MG/TAB PO (06:09)
[2019-07-28] MEDS ORDERED: PAMELOR 25MG25 MG PO (06:10)
[2019-07-28] MEDS ORDERED: XOPENEX 1.1.25 MG/3 IH (06:12)
[2019-07-28 06:22] LABS: TROPONIN-I < 0.012 ng/mL (0.000-0.035)
[2019-07-28 08:18] LABS: COLLECTION METHOD CLEAN CATCH
[2019-07-28 08:25] LABS: PH 6 (5-8); SQUAMOUS EPITHELIAL None Seen /hpf; URINE APPEARANCE Clear; URINE BACTERIA None Seen /hpf; URINE BILIRUBIN Negative (NEGATIVE); URINE BLOOD Negative (NEGATIVE); URINE COLOR Yellow; URINE GLUCOSE Negative (NEGATIVE); URINE KETONE Negative (NEGATIVE); URINE LEUKOCYTE ESTERASE Negative (NEGATIVE); URINE NITRATE Negative (NEGATIVE); URINE PROTEIN(semi-quant) Negative (NEGATIVE); URINE RBC 0-2 /hpf; URINE UROBILINOGEN Negative (NEGATIVE)
[2019-07-28 09:49] VITALS: BP 104/82; PULSE 110
== END 2019-07-28 09:51 | disposition home or self-care (01) ==
LOC: COL.ER 05:20
PROVIDERS: Emergency Medicine
DX: S01.01XA Laceration without foreign body of scalp, initial encounter (principal); I10 Essential (primary) hypertension; J44.9 Chronic obstructive pulmonary disease, unspecified; E78.5 Hyperlipidemia, unspecified; Z87.891 Personal history of nicotine dependence; W19.XXXA Unspecified fall, initial encounter; W22.8XXA Striking against or struck by other objects, initial encounter; Y92.129 Unspecified place in nursing home as the place of occurrence of the external cause
CPT/HCPCS: J2405; J3010; J7030

== ENCOUNTER → 2019-08-26 | Outpatient (CLI) | payer MEDICARE, MEDICAID ==
[~2019-08-26] MED LIST changes: +ANORO IH; +HALDOL ORAL 22 MG/ML PO; +MOBIC 7.5MG7.5 MG PO; +MORPHINE 1515 MG/TAB PO; +XOPENEX 1.1.25 MG/3 IH
== END ==
LOC: ZCOL.LAB 13:13
DX: E03.9 Hypothyroidism, unspecified (principal)

== ENCOUNTER → 2020-01-23 | Outpatient (CLI) | payer MEDICARE, MEDICAID | LOC: ZCOL.LAB 16:39 | DX: R50.81 Fever presenting with conditions classified elsewhere (principal); Z20.828 Contact with and (suspected) exposure to other viral communicable diseases ==

== ENCOUNTER → 2020-03-23 | Outpatient (CLI) | payer MEDICARE, MEDICAID ==
[2020-03-23 12:21] LABS: BASO # 0.1 (0.0-0.2); BASO % 0.6 % (0.0-2.0); EOS # 0.2 (0.0-0.7); EOS % 1.8 % (0-4.0); GRAN # 5.5 (1.4-6.5); HEMATOCRIT 39.5 % (37.0-47.0); HEMOGLOBIN 12.2 g/dl (12.5-16.0); LYMPH # 1.8 (1.2-3.4); LYMPH % 21.6 % (20.0-51.0); MEAN CELL VOLUME 96 fl (80.0-100.0); MEAN CORPUSCULAR HEMOGLOBIN 30 pg (27.0-31.0); MEAN CORPUSCULAR HGB CONC 31 g/dl (33.0-37.0); MONO # 0.7 (0.1-0.6); MONO % 8.3 % (1.7-9.3); PLATELET COUNT 258 K/mm3 (130-400); RED BLOOD COUNT 4.13 M/mm3 (4.10-5.30); REDCELL DISTRIBUTION WIDTH-CV 12.9 % (11.5-14.5)
[2020-03-23 12:23] LABS: CALCIUM 9.7 mg/dL (8.4-10.2); CREATININE, serum 0.84 (0.52-1.25); POTASSIUM 3.8 mmol/L (3.4-5.0)
== END ==
LOC: ZCOL.LAB 11:49
PROVIDERS: Internal Medicine
DX: E27.49 Other adrenocortical insufficiency (principal)

== ENCOUNTER → 2021-02-16 | Outpatient (CLI) | payer MEDICARE, MEDICAID ==
[~2021-02-16] MED LIST changes: +ANTACID EXTRA750 M1 PO; +ANTI-DIARRHEAL2 MG PO; +ASPI325T6 PO; +CORTEF 20MG TAB20 MG PO; +DULCOLAX S10 MG/SUPP RC; +DULCOLAX STOOL100 MG PO; +DUO-KAPS1 CAP PO; +GOOD NEIGH1200 MG/15; +LASIX 20MG TABL20 MG PO; +MYLANTA COAT-C355 ML; +NYSTATIN OR100 MU/ML; +OSCAL 500 TAB500 MG PO; +PULMICORT0.5 MG/2 M IH; +REMERON 15M15 MG/TA1 PO; +RISPERDAL 1M1 MG/TAB PO; +VERELAN180 MG PO; +VITAMIN C500 MG PO
[2021-02-16 15:44] LABS: BASO # 0.1 (0.0-0.2); BASO % 0.6 % (0.0-2.0); EOS # 0.1 (0.0-0.7); EOS % 0.9 % (0-4.0); GRAN # 7.7 (1.4-6.5); GRAN % 83.1 % (42.2-75.2); LYMPH # 0.9 (1.2-3.4); LYMPH % 9.2 % (20.0-51.0); MEAN CELL VOLUME 90 fl (80.0-100.0); MEAN CORPUSCULAR HEMOGLOBIN 27 pg (27.0-31.0); MEAN CORPUSCULAR HGB CONC 30 g/dl (33.0-37.0); MEAN PLATELET VOLUME 12.4 fl (7.4-10.4); MONO # 0.5 (0.1-0.6); MONO % 5.6 % (1.7-9.3); PLATELET COUNT 237 K/mm3 (130-400); RED BLOOD COUNT 4.05 M/mm3 (4.10-5.30); REDCELL DISTRIBUTION WIDTH-CV 14.9 % (11.5-14.5)
[2021-02-16 15:58] LABS: BILIRUBIN,TOTAL 0.1 mg/dL (0.0-1.0); CALCIUM 8.9 mg/dL (8.4-10.2); CREATININE, serum 0.84 (0.52-1.25); HEMATOCRIT 36.5 % (37.0-47.0); POTASSIUM 3.7 mmol/L (3.4-5.0); TOTAL PROTEIN 7.4 gm/dL (6.4-8.2)
== END ==
LOC: ZCOL.LAB 13:25
PROVIDERS: Internal Medicine
DX: C34.31 Malignant neoplasm of lower lobe, right bronchus or lung (principal)

== ENCOUNTER → 2021-02-22 | Outpatient (CLI) | payer MEDICARE, MEDICAID | LOC: ZCOL.LAB 12:31 | DX: Z13.1 Encounter for screening for diabetes mellitus (principal) ==

== ENCOUNTER → 2021-03-20 | Outpatient (CLI) | payer MEDICARE, MEDICAID ==
[2021-03-20 16:39] LABS: BASO # 0.1 (0.0-0.2); BASO % 0.7 % (0.0-2.0); EOS # 0.2 (0.0-0.7); EOS % 2.5 % (0-4.0); GRAN % 65.8 % (42.2-75.2); HEMOGLOBIN 11.1 g/dl (12.5-16.0); LYMPH # 2.1 (1.2-3.4); LYMPH % 22.7 % (20.0-51.0); MEAN CELL VOLUME 90 fl (80.0-100.0); MEAN CORPUSCULAR HEMOGLOBIN 28 pg (27.0-31.0); MEAN CORPUSCULAR HGB CONC 31 g/dl (33.0-37.0); MEAN PLATELET VOLUME 11.6 fl (7.4-10.4); MONO # 0.7 (0.1-0.6); MONO % 7.9 % (1.7-9.3); PLATELET COUNT 255 K/mm3 (130-400); RED BLOOD COUNT 4.04 M/mm3 (4.10-5.30); REDCELL DISTRIBUTION WIDTH-CV 14.9 % (11.5-14.5)
[2021-03-20 16:41] LABS: HEMATOCRIT 36.3 % (37.0-47.0)
[2021-03-20 16:47] LABS: ALBUMIN 4.2 gm/dL (3.5-5.0); BILIRUBIN,TOTAL 0.4 mg/dL (0.0-1.0); CALCIUM 9.8 mg/dL (8.4-10.2); CREATININE, serum 0.82 (0.52-1.25); TOTAL PROTEIN 7.5 gm/dL (6.4-8.2)
== END ==
LOC: ZCOL.LAB 13:16
PROVIDERS: Internal Medicine
DX: C34.90 Malignant neoplasm of unspecified part of unspecified bronchus or lung (principal)

== ENCOUNTER 2021-04-21 10:44 | Inpatient (IN) | payer MEDICARE, MEDICAID ==
[~2021-04-21] VITALS: Ht 162.6 cm; Wt 65.9 kg
[~2021-04-21 10:44] MED LIST changes: -ANTACID EXTRA750 M1 PO; -ANTI-DIARRHEAL2 MG PO; -ASPI325T6 PO; -CORTEF 20MG TAB20 MG PO; -DULCOLAX S10 MG/SUPP RC; -DULCOLAX STOOL100 MG PO; -DUO-KAPS1 CAP PO; -GOOD NEIGH1200 MG/15; -LASIX 20MG TABL20 MG PO; -MYLANTA COAT-C355 ML; -NYSTATIN OR100 MU/ML; -OSCAL 500 TAB500 MG PO; -PULMICORT0.5 MG/2 M IH; -REMERON 15M15 MG/TA1 PO; -RISPERDAL 1M1 MG/TAB PO; -VERELAN180 MG PO; -VITAMIN C500 MG PO
[2021-04-21] MEDS ORDERED: LASIX 20MG TABL20 MG PO (11:18)
[2021-04-21] MEDS ORDERED: RISPERDAL 1M1 MG/TAB PO (11:21)
[2021-04-21 12:24] LABS: COLLECTION METHOD CATHETER
[2021-04-21 12:29] LABS: BASO # 0.1 K/mm3 (0.0-0.2); BASO % 0.5 % (0.0-2.0); EOS # 0.1 K/mm3 (0.0-0.7); EOS % 1.1 % (0-4.0); GRAN # 8.2 K/mm3 (1.4-6.5); GRAN % 79.4 % (42.2-75.2); HEMATOCRIT 35.5 % (37.0-47.0); HEMOGLOBIN 10.6 g/dl (12.5-16.0); LYMPH # 1.2 K/mm3 (1.2-3.4); LYMPH % 11.8 % (20.0-51.0); MEAN CELL VOLUME 93 fl (80.0-100.0); MEAN CORPUSCULAR HEMOGLOBIN 28 pg (27.0-31.0); MEAN CORPUSCULAR HGB CONC 30 g/dl (33.0-37.0); MEAN PLATELET VOLUME 11.1 fl (7.4-10.4); MONO # 0.7 K/mm3 (0.1-0.6); MONO % 6.6 % (1.7-9.3); PLATELET COUNT 235 K/mm3 (130-400); REDCELL DISTRIBUTION WIDTH-CV 14.4 % (11.5-14.5)
[2021-04-21 12:31] LABS: MUCOUS Present /lpf; PH 5 (5-8); SQUAMOUS EPITHELIAL None Seen /hpf; URINE APPEARANCE Clear; URINE BACTERIA None Seen /hpf; URINE BILIRUBIN Negative (NEGATIVE); URINE BLOOD Negative (NEGATIVE); URINE COLOR Yellow; URINE GLUCOSE Negative (NEGATIVE); URINE KETONE Negative (NEGATIVE); URINE LEUKOCYTE ESTERASE Negative (NEGATIVE); URINE NITRATE Negative (NEGATIVE); URINE PROTEIN(semi-quant) Negative (NEGATIVE); URINE RBC 0-2 /hpf; URINE UROBILINOGEN Negative (NEGATIVE)
[2021-04-21 12:49] LABS: ALBUMIN 3.7 gm/dL (3.4-4.8); BILIRUBIN,TOTAL 0.5 mg/dL (0.2-1.2); CALCIUM 9.2 mg/dL (8.4-10.2); CREATININE, serum 0.86 mg/dL (0.57-1.11); POTASSIUM 3.4 mmol/L (3.5-4.5); TOTAL PROTEIN 7.6 gm/dL (6.2-8.1)
[2021-04-21 13:22] VITALS: BP 100/79; PULSE 84; TEMP 98.3
[2021-04-21 13:26] LABS: INR 1.4 (0.8-3.0); PROTHROMBIN TIME 15.2 SECONDS (9.7-12.8)
--- NOTE | 2021-04-21 14:06 | NUR ---
Pt. admitted to room 326. Pt.'s daughter Dayanara accompanying pt. at this time. Pt. reports pain to her lower back. Dr. Aviles notified pt. is here. Dr. Aviles placed basic orders but reports Dr. Meyers will be pt.'s hospitalist today. Pt. resting in bed and oriented to her room. Pt. in room now getting a chest x-ray. Orders obtained for a general diet and NPO at midnight. Pt. swallowed water with no s/s of difficulty. Call light and belongings in reach.
[2021-04-21 15:35] VITALS: BP 100/66; PULSE 84; TEMP 98.2
--- NOTE | 2021-04-21 15:39 | NUR ---
Hilton cath placed per order. Dark yellow urine output in hilton, large amount, see I&O. Kimi in place on patient as well. Dr. Meyers in pt.'s room to admit patient. Pt.'s daughter Dayanara remains at bedside.
[2021-04-21] MEDS ORDERED: CORTEF 20MG TAB20 MG PO (16:01)
[2021-04-21] MEDS ORDERED: REMERON 15M15 MG/TA1 PO (16:05)
[2021-04-21] MEDS ORDERED: VERELAN180 MG PO (16:22)
[2021-04-21] MEDS ORDERED: ANTACID EXTRA750 M1 PO (16:23)
[2021-04-21] MEDS ORDERED: DULCOLAX S10 MG/SUPP RC (16:23)
[2021-04-21] MEDS ORDERED: DULCOLAX STOOL100 MG PO (16:24)
[2021-04-21] MEDS ORDERED: MIRALAX PA17 GM/Dose PO (16:25)
[2021-04-21] MEDS ORDERED: XOPENEX 1.1.25 MG/3 IH (16:27)
[2021-04-21] MEDS ORDERED: ANTI-DIARRHEAL2 MG PO (16:28)
[2021-04-21] MEDS ORDERED: GOOD NEIGH1200 MG/15 (16:29)
[2021-04-21] MEDS ORDERED: MYLANTA COAT-C355 ML (16:30)
[2021-04-21] MEDS ORDERED: NYSTATIN OR100 MU/ML (16:31)
[2021-04-21] MEDS ORDERED: TYLENOL 325MG325 MG PO (16:36)
--- NOTE | 2021-04-21 19:06 | NUR ---
Report provided to CHRIST Chauhan. Pt. resting in bed, SCDs and tedhoes on. Bed alarm on, call light and belongings in reach. Pt. refused dinner this evening, she reports she is not hungry but denies nausea.
[2021-04-21 19:54] VITALS: BP 136/85; PULSE 95; TEMP 98
[2021-04-22] VITALS (12 sets, daily range): BP systolic 78–136; BP diastolic 51–91; PULSE 75–99; TEMP 97.3–98.1
--- NOTE | 2021-04-22 01:16 | NUR ---
PT RESTING QUIETLY IN BED @ THIS TIME. HOB ELEVATED ET O2 ON 3L NC. RESPIRATIONS UNLABORED. PT IS DROWSY BUT AWAKENS EASILY. DENIES PAIN. PT HAD EARLIER BEEN MOANING "OW" REPEATEDLY. HAD BEEN VERY RESTLESS ET BREATHING HEAVILY, RATED LEFT LEG PAIN 10/10. MORPHINE IV PROVIDED NO RELIEF OXYCODONE PO WAS ADMINISTERED X3 PER ORDER DIRECTIONS. PT HAS BEEN RESTING WELL SINCE. BED ALARM ON, CALL LIGHT WITHIN REACH.
--- NOTE | 2021-04-22 04:04 | NUR ---
PT AWAKENS ET STARTS MOANING, STATES THAT SHE IS HAVING PAIN. PT BEGINS BREATHING FASTER ET WHEEZES ARE HEARD. HOB IS RAISED, PT REMAINS ON 3L O2 NC. OXYCODONE ADMINISTERED ET RT CALLED FOR PRN BREATHING TX.
--- NOTE | 2021-04-22 04:09 | NUR ---
RESPIRATORY HERE TO ADMINISTER BREATHING TX. PT IS RESTLESS.
--- NOTE | 2021-04-22 06:22 | NUR ---
PT ON BIPAP THAT WAS PLACED BY CARDIOPULMONARY R/T INCREASED WORK OF BREATHING. PT IS AWAKE ET MOANING "OW" REPEATEDLY WITH EYES CLOSED. PT STATES THAT SHE IS HAVING PAIN. MORPHINE IV ADMINISTERED. CALL LIGHT WITHIN REACH. WILL CONTINUE TO MONITOR.
[2021-04-22 07:45] LABS: BASO # 0.1 K/mm3 (0.0-0.2); BASO % 0.6 % (0.0-2.0); EOS # 0.3 K/mm3 (0.0-0.7); EOS % 3.2 % (0-4.0); GRAN # 7.7 K/mm3 (1.4-6.5); GRAN % 73.4 % (42.2-75.2); HEMOGLOBIN 10.7 g/dl (12.5-16.0); LYMPH # 1.2 K/mm3 (1.2-3.4); LYMPH % 11.7 % (20.0-51.0); MEAN CELL VOLUME 91 fl (80.0-100.0); MEAN CORPUSCULAR HEMOGLOBIN 28 pg (27.0-31.0); MEAN CORPUSCULAR HGB CONC 31 g/dl (33.0-37.0); MEAN PLATELET VOLUME 11.3 fl (7.4-10.4); MONO # 1.1 K/mm3 (0.1-0.6); MONO % 10.5 % (1.7-9.3); PLATELET COUNT 223 K/mm3 (130-400); RED BLOOD COUNT 3.81 M/mm3 (4.10-5.30); REDCELL DISTRIBUTION WIDTH-CV 14.2 % (11.5-14.5)
[2021-04-22 07:48] LABS: HEMATOCRIT 34.6 % (37.0-47.0)
[2021-04-22 08:40] LABS: CALCIUM 9.2 mg/dL (8.4-10.2); CREATININE, serum 0.7 mg/dL (0.57-1.11); MAGNESIUM 1.8 mg/dL (1.6-2.6); POTASSIUM 3.3 mmol/L (3.5-4.5)
--- NOTE | 2021-04-22 09:02 | NUR ---
Patient alert, intermittent confusion noted. LLE with pulses palpable, sensation intact. LLE with slight external rotation. Pain to left hip 4/10. FAITH hose and SCDs in place. Oxygen at 4l/nc as per at home. No c/o at this time.
--- NOTE | 2021-04-22 09:35 | NUR ---
Surgical consent signed.
--- NOTE | 2021-04-22 12:35 | NUR ---
Patient to surgery with surgical staff at this time.
--- NOTE | 2021-04-22 14:33 | NUR ---
boom stick worker met with patient to discuss the need for care home post dc. Patient is in agreement from this. She currently resides at [facility]. Magali contacted and referral sent for skilled care post dc. attempt made to contact the patients daughter Dayanara but [facility] full.
--- NOTE | 2021-04-22 17:15 | NUR ---
Patient returns from PACU at 1710. Left hip with dressing CDI, pulses palpable. Patient initially on 4l/nc upon return from PACU, oximeter 88%. NC removed and patient placed on bipap. Oximeter 89-90%. RT called. Blood pressure 93/51 initially, decreased to 82/59. Dr Meyers notified of above, at bedside, see orders.
[2021-04-22 17:49] LABS: ARTERIAL BLD GAS O2 SATURATION 97.6 % (92-100); ARTERIAL BLD GAS TCO2 CT 31.6; ARTERIAL BLOOD GAS BASE EXCESS 3.3 (-2-2); ARTERIAL BLOOD GAS HCO3 29.9 meq/L (22-26); ARTERIAL BLOOD GAS PCO2 55.7 mmHg (35-45); ARTERIAL BLOOD GAS PO2 110.7 mmHg (80-100); ARTERIAL BLOOD GAS pH 7.35 (7.35-7.45)
--- NOTE | 2021-04-22 19:00 | NUR ---
Fluid bolus given per Drs order, remains hypotensive. Urinary out put 150ml after fluid bolus and NS @ 150cc/hr per Drs order. See flowsheet. Patient remains on bipap, sats 95-97%. Report given to CHRIST Flores.
--- NOTE | 2021-04-22 19:59 | NUR ---
ALERT TO NAME- SLEEPING WITH BIPAP ON. BP COMING UP AFTER FLUID BOLUS. MEGANPA AWARE. NO PAIN NOTED NO GRIMACE. IV FLUIDS GOING AT 150ML/HR. DSG TO HIP C/D/I. CALL LIGHT WI REACH
[2021-04-22 21:29] LABS: ARTERIAL BLD GAS O2 SATURATION 95.9 % (92-100); ARTERIAL BLD GAS TCO2 CT 27.6; ARTERIAL BLOOD GAS BASE EXCESS 1.1 (-2-2); ARTERIAL BLOOD GAS HCO3 26.3 meq/L (22-26); ARTERIAL BLOOD GAS PO2 85.1 mmHg (80-100); ARTERIAL BLOOD GAS pH 7.39 (7.35-7.45)
--- NOTE | 2021-04-22 23:52 | NUR ---
ALERT BUT NOT ORIENTATED. SLEEPING W EYES CLOTHES RESP EVEN AND UNLABORED. ON BIPAP AT SHIFT CHANGE. AFTER EVENING ABG AND DOING BETTER PLACED ON 5L OXYMASK. PT BP BEING MONITORED CLOSLY. AFTER BOLUS AND FLUIDS GOES UP AND FLUIDS DOWN TO 100ML/HR. PT INITALLY NOT ALERT ENOUGH TO GIVE MEDS HOWEVER WAKES UP AND DURING THE HOURS OF [id number] HAD PULLED OUT 3 IVS, TAKEN OFF TELE PATCHES SEVERAL TIME AND ATTEMPTED TO PULL OUT TOLBERT. PLACED IN SOFT MITS, ALEX PATEL AWARE AND ORDER PLACED FOR NON-VIOLENT MITS. PT IS VERALLY ABUSIVE CALLING STAFF "BITCHES" EACH TIME REMINDING HER TO LEAVE THINGS ALONE HAD EVEN MANAGED TO PULL MITS OFF BUT SEEN IN TIME TO PLACE BACK ON. GOOD CICULATION AND PULSE TO RT AND LEFT WRIST. CATTLE PRODUCERS AWARE OF PT NON-COMPLIENCE SHE STARTED IVS FOR THIS NURSE. EVENING MEDS GIVEN W PUDDING AND OFFER DRINKS OF WATER TO PT OFTEN. BED IN LOW POSITION FOR SAFTEY.
[2021-04-23] VITALS (8 sets, daily range): BP systolic 78–168; BP diastolic 48–81; PULSE 68–111; TEMP 97.7–100.1
--- NOTE | 2021-04-23 01:14 | NUR ---
REMAINS AGGITATED AND AWAKE, PULLING AT MITS TO TAKE OFF AND CURSING AT STAFF. SOFT MITS INTACT BUT HAS REMOVED A FEW TIMES. CONTINUE TO MONITOR CLOSE.
--- NOTE | 2021-04-23 04:03 | NUR ---
ALEX PATEL DC TELE AND IV FLUIDS.
--- NOTE | 2021-04-23 04:52 | NUR ---
PT RESTING W EYES CLOSED, RESP EVEN AND UNLABORED. MONITORING.
--- NOTE | 2021-04-23 05:39 | NUR ---
PT RESTING NOW. VITALS OBTAINED. TOOK OF SOFT MITS TO SEE HOW PT WOULD DO A LITTLE LESS AGITATED NOW. WILL MONITOR.
--- NOTE | 2021-04-23 05:48 | NUR ---
DC SOFT MITS, PT REMAINS CALM AFTER. NO TUGING OR PULLING.RESTING QUIETLY W EYES CLOSED, RESP EVEN AND UNLABORED.
[2021-04-23 07:52] LABS: HEMATOCRIT 28.2 % (37.0-47.0); HEMOGLOBIN 8.8 g/dl (12.5-16.0); MEAN CELL VOLUME 89 fl (80.0-100.0); MEAN CORPUSCULAR HEMOGLOBIN 28 pg (27.0-31.0); MEAN CORPUSCULAR HGB CONC 31 g/dl (33.0-37.0); MEAN PLATELET VOLUME 11.6 fl (7.4-10.4); PLATELET COUNT 195 K/mm3 (130-400); RED BLOOD COUNT 3.16 M/mm3 (4.10-5.30); REDCELL DISTRIBUTION WIDTH-CV 14.3 % (11.5-14.5)
--- NOTE | 2021-04-23 09:24 | NUR ---
Patient alert, confused. See assessment. LLE hip dressing CDI. Pulses palpable to LLE, sensation intact. Abductor pillow in place. Lungs decreased in bases, clear in upper lobes. O2 via oxymask at 5l. Britton catheter in place, draining clear yellow urine. No c/o at this time.
--- NOTE | 2021-04-23 10:55 | NUR ---
Unable to do K+ protocol, lab machine down.
--- NOTE | 2021-04-23 11:30 | NUR ---
ERNESTO contacted the patient's daughter, Dayanara (ph#[phone]), to review discharge plan. Dayanara confirms that the plan is for the patient to return back to [facility] for SNF. She states that the patient resides at [facility] and [facility] plans on keeping the patient in [facility] for SNF. ERNESTO confirmed the above with Magali at [facility]. ERNESTO faxed updates to [facility]. *Discharge plan: [facility] SNF*
[2021-04-23 15:18] LABS: ARTERIAL BLD GAS TCO2 CT 30.6; ARTERIAL BLOOD GAS BASE EXCESS 3.4 (-2-2); ARTERIAL BLOOD GAS HCO3 29.1 meq/L (22-26); ARTERIAL BLOOD GAS PCO2 48.1 mmHg (35-45); ARTERIAL BLOOD GAS PO2 97.8 mmHg (80-100)
[2021-04-23 17:56] LABS: CALCIUM 8.9 mg/dL (8.4-10.2); CREATININE, serum 0.7 mg/dL (0.57-1.11); MAGNESIUM 2.2 mg/dL (1.6-2.3); POTASSIUM 3.8 mmol/L (3.4-5.0)
--- NOTE | 2021-04-23 20:57 | NUR ---
SLEEPING IN RECLINER W LEGS ELEVATED. WAKES BRIEFLY ALERT TO SELF ONLY. HAS PULLED OUT TOLBERT. NOT ALERT ENOUGH FOR PM MEDS. CONFUSED ABOUT DAY/TIME.
--- NOTE | 2021-04-23 21:03 | NUR ---
ALEX UPDATED ON PT STATUS OF PULLING OUT TOLBERT CATH AND LUNG SOUNDS. DC FLUIDS NOW. PT SLEEPING IN RECLINER WILL ATTEMPT TO GET HER INTO BED AND PLACE TOLBERT IF ABLE. RT IN ROOM NOW ASSESSING.
[2021-04-24] VITALS (8 sets, daily range): BP systolic 102–136; BP diastolic 56–90; PULSE 89–100; TEMP 97.3–98.6
--- NOTE | 2021-04-24 00:31 | NUR ---
UNABLE TO REPLACE TOLBERT CATH X 3 NURSE ATTEMPTS. ALEX PATEL AWARE. BLADDER SCAN OF 177ML. DEPENDS PLACED ON PT. DENIES HAVING TO URINATE AT THIS TIME. MONITORING FOR OUTPT.
--- NOTE | 2021-04-24 02:33 | NUR ---
PT TOOK OFF OXY MASK FOUND TO HAVE O2 SAT AT 61%. PULLED OUT IV. PLACED ON BIPAP BY RT. SOFT MITS ON. ALEX PATEL CALLED TO UPDATE. 100% ON BIPAP AND WAKES MORE ATTEMPTING TO PULL OF MITS AGAIN. VS TAKEN. MONITORING.
--- NOTE | 2021-04-24 02:49 | NUR ---
RT FA RESTART 22G INT. BED ALARM ON. MONITORING FROM NURSE DESK.
--- NOTE | 2021-04-24 05:50 | NUR ---
RESTED THE REST OF THE NIGHT W BIPAP ON. DID HAVE VOID IN DEPENDS OVERNIGHT. UNABLE TO MEASURE OUTPT.
--- NOTE | 2021-04-24 06:17 | NUR ---
PT WILL ALSO NOT LEAVE ABDUCTED PILLOW BETWEEN LEGS WHEN IN BED, KICKS IF OFF. ATTEMPTED MULTIPLE TIMES TO KEEP IN PLACE.
[2021-04-24 07:07] LABS: CREATININE, serum 0.65 mg/dL (0.57-1.11); POTASSIUM 3.6 mmol/L (3.5-4.5)
--- NOTE | 2021-04-24 08:34 | NUR ---
REPORT FROM TALITA POLO. PT UP TO RECLINER WITH THERAPY BIPAP INPLACE. RT PLACED PT ON 4L PNC. STOPPED BIPAP. PT ASKING FOR PAIN MEDICATIONS, ANSWERING QUESTIONS APPROPRIATELY. REFUSING BREAKFAST AT THIS TIME.
[2021-04-24 09:29] LABS: BASO % 0.2 % (0.0-2.0); EOS % 0.3 % (0-4.0); GRAN # 10.4 K/mm3 (1.4-6.5); GRAN % 80.1 % (42.2-75.2); LYMPH # 1.3 K/mm3 (1.2-3.4); LYMPH % 10.1 % (20.0-51.0); MEAN CELL VOLUME 92 fl (80.0-100.0); MEAN CORPUSCULAR HGB CONC 31 g/dl (33.0-37.0); MEAN PLATELET VOLUME 11.2 fl (7.4-10.4); MONO # 1.1 K/mm3 (0.1-0.6); MONO % 8.4 % (1.7-9.3); PLATELET COUNT 235 K/mm3 (130-400); RED BLOOD COUNT 3.09 M/mm3 (4.10-5.30); REDCELL DISTRIBUTION WIDTH-CV 14.6 % (11.5-14.5)
[2021-04-24 09:30] LABS: HEMATOCRIT 28.4 % (37.0-47.0); HEMOGLOBIN 8.7 g/dl (12.5-16.0); MEAN CORPUSCULAR HEMOGLOBIN 28 pg (27.0-31.0)
--- NOTE | 2021-04-24 09:55 | NUR ---
PT RESTING IN RECLINER APPEARS TO BE SLEEPING. PT POSSIBLY TRANSFERED BACK TO [facility]. ORTHOPEDICALLY DOING WELL. AM MEDS GIVEN ORDERED. PT ABLE TO TAKE MEDS WHOLE WITH THIN LIQUIDS. RT IN AND LOWERED O2 TO 4 L PNC. PT TOLERATING WELL.
--- NOTE | 2021-04-24 15:21 | NUR ---
The PA notified ERNESTO that the hospitalist is thinking discharge tomorrow on the patient. ERNESTO notified and faxed updates to Magali at [facility]. ERNESTO met with the patient and her sister, Mamta, to update. The patient and Mamta are in agreement to the plan. Mamta reports that she has been keeping the patient's daughter, Dayanara, updated. ERNESTO presented and read the IM form outloud to the patient. The patient verbalized understanding and signed the form. ERNESTO provided her with a copy.
--- NOTE | 2021-04-24 21:34 | NUR ---
pt took off o2 unknowingly and RT found o2 at 71%. Bipap put back on w continuous monitoring of pulse ox. Raegan PATEL notified.
--- NOTE | 2021-04-24 21:48 | NUR ---
ALERT TO SELF AND SITUATION AND APPOLIGIZES FOR BEHAVIOR LAST FEW DAYS. HOWEVER BECOMES MORE CONFUSED AT NIGHT. PULLS OFF O2 N/C, PLACED ON BIPAP. PM MEDS GIVEN. TYL FOR PAIN, TRYING TO GIVE MINIMAL NARCS. CONTINOUS PULSE OX ON. BED ALARM ON. CALL LIGHT WI REACH. NEEDS MET.
[2021-04-25 04:37] VITALS: BP 134/65; PULSE 94; TEMP 98.3
--- NOTE | 2021-04-25 05:32 | NUR ---
RESTED OFF AND ON OVERNIGHT MOSTLY UP AND AWAKE. NEEDS MET.
[2021-04-25 06:26] LABS: BASO % 0.4 % (0.0-2.0); EOS # 0.3 K/mm3 (0.0-0.7); EOS % 2.9 % (0-4.0); GRAN # 7.4 K/mm3 (1.4-6.5); GRAN % 73.5 % (42.2-75.2); LYMPH # 1.5 K/mm3 (1.2-3.4); LYMPH % 14.9 % (20.0-51.0); MEAN CELL VOLUME 90 fl (80.0-100.0); MEAN CORPUSCULAR HGB CONC 31 g/dl (33.0-37.0); MEAN PLATELET VOLUME 11.5 fl (7.4-10.4); MONO # 0.8 K/mm3 (0.1-0.6); MONO % 7.7 % (1.7-9.3); PLATELET COUNT 222 K/mm3 (130-400); RED BLOOD COUNT 3.11 M/mm3 (4.10-5.30); REDCELL DISTRIBUTION WIDTH-CV 14.6 % (11.5-14.5)
[2021-04-25 06:30] LABS: HEMATOCRIT 28.1 % (37.0-47.0); HEMOGLOBIN 8.7 g/dl (12.5-16.0); MEAN CORPUSCULAR HEMOGLOBIN 28 pg (27.0-31.0)
[2021-04-25 06:53] LABS: CALCIUM 9.5 mg/dL (8.4-10.2); CREATININE, serum 0.64 mg/dL (0.57-1.11); POTASSIUM 3.2 mmol/L (3.5-4.5)
[2021-04-25 08:00] VITALS: BP 133/89; PULSE 105; TEMP 98
--- NOTE | 2021-04-25 08:50 | NUR ---
PT UP TO [facility] THIS AM VOIDED AND MOVED BOWELS. ASSISTED WITH [facility] THEN UP TO RECLINER FOR THERAPY. PT WORKED WITH THERAPY AND AMBULATED TO DOOR AND BACK. PLAN ON DISCHARGE LATER TODAY.
[2021-04-25] MEDS ORDERED: DUO-KAPS1 CAP PO (08:51)
[2021-04-25] MEDS ORDERED: OSCAL 500 TAB500 MG PO (08:51)
[2021-04-25] MEDS ORDERED: VITAMIN C500 MG PO (08:51)
[2021-04-25] MEDS ORDERED: ASPI325T6 PO (08:52)
[2021-04-25] MEDS ORDERED: PULMICORT0.5 MG/2 M IH (09:01)
[2021-04-25 11:23] VITALS: BP 133/74; PULSE 102; TEMP 98.3
--- NOTE | 2021-04-25 13:12 | NUR ---
First visit from the clinical resource nurse. No needs right now.
--- NOTE | 2021-04-25 15:15 | NUR ---
ERNESTO contacted and faxed updates to Magali at [facility]. Magali reports that after their team and Dr. Dodd reviewed the patient's updates, they noticed that the patient has been using a bipap at night and during the day intermittenly. The patient does not use a bipap or cpap at home and they cannot do bipap intermittently during the day, only at night. They would like to see the patient stable on the bipap only at night and not taking the bipap off. Magali reports that Dr. Dodd is able to do a doc-to-doc, if the hospitalist would like to. She provided SW with Dr. Dodd's phone number. ERNESTO updated the hospitalist and provided him with Dr. Dodd phone number. ERNESTO met with the patient and her sister, Mamta, and updated them on the above. The patient and her sister verbalized understanding and were in agreement to the plan.
[2021-04-25 16:00] VITALS: BP 132/89; PULSE 113; TEMP 98.2
[2021-04-25 19:56] VITALS: BP 112/85; PULSE 113; TEMP 98.4
--- NOTE | 2021-04-25 20:19 | NUR ---
DURING ASSESSMENT PATIENT GETS OUT OF CHAIR AND TO RESTROOM WITH ONE ASSIST,
[2021-04-25 23:30] VITALS: BP 130/62; PULSE 69; TEMP 97.9
--- NOTE | 2021-04-26 02:22 | NUR ---
AROUND 2 AM PATIENT AWAKENS THIRSTING FOR AIR, REMOVED BIPAP, PLACED ON NC AT 2 L, PAIN MEDICATION ADMINISTERED, H20,AND CONVERSATION TO EASE CIRCUMSTANCE OF BREATHING, PLACED ON CONTINUOUS PULSE OX, AT 97 TO 99% SATS PULSE 90 TO 95,. CURRENTLY WENT INTO SEE PATIENT. SHE'S ASLEEP, STILL ON CONTINUOUS PULSE OX AT 97% WITH AN 88 PULSE AT NC 2 L O2.
[2021-04-26 04:00] VITALS: BP 100/79; PULSE 93; TEMP 98.7
[2021-04-26 07:22] VITALS: BP 120/81; PULSE 107; TEMP 98.8
--- NOTE | 2021-04-26 08:08 | NUR ---
PT DOING WELL THIS AM. PT MAINTAINED SATS OVERNIGHT BY REPORT. ABLE TO USE NASAL CANULA MOST OF NIGHT. MITTS WERE NOT NECESSARY FOR PT SAFETY. PT COMPLIANT AND PLEASANT THIS AM. USING CALL LIGHT APPROPRIATLEY. DRESSING TO LEFT HIP CDI. PT EATING BREAKFAST. DENIES NEEDS AT THIS TIME.
--- NOTE | 2021-04-26 09:56 | NUR ---
Magali, at [facility], reports that our hospitalist contacted Dr. Dodd this morning with and update on the patient. Dr. Montes and the team are good to take the patient today. The patient is to discharge today, 04/26, to [facility] for a skilled stay. Transportation was scheduled at 1130, via [facility]. ERNESTO informed the patient's RN and her daughter, Dayanara, of the time. They were both agreeable to the time. SW also read the IM form outloud to Dayanara over the phone. Dayanara verbalized understanding and gave SW approval to sign the form on her behalf. No additional needs this at this time.
--- NOTE | 2021-04-26 11:22 | NUR ---
REPORT TO CUONG BAE.
--- NOTE | 2021-04-26 11:47 | NUR ---
VIOLA BROWN PICKED UP PT.
== END 2021-04-26 11:30 | DRG 521 ==
LOC: COL.ER 10:44 → SURG 12:13
PROVIDERS: Internal Medicine; Nurse Practitioner Primary Care; Orthopaedic Surgery; Physician Assistant; Student in an Organized Health Care Education/Training Program; ADMIT Internal Medicine
PROC: 5A09357 Assistance with Respiratory Ventilation, Less than 24 Consecutive Hours, Continuous Positive Airway Pressure (ICD-10-PCS; 2021-04-22)
PROC: 5A0935A Assistance with Respiratory Ventilation, Less than 24 Consecutive Hours, High Flow/Velocity Cannula (ICD-10-PCS; 2021-04-22)
PROC: 0SRS0J9 Replacement of Left Hip Joint, Femoral Surface with Synthetic Substitute, Cemented, Open Approach (ICD-10-PCS; principal; 2021-04-22 13:00)
DX: S72.002A Fracture of unspecified part of neck of left femur, initial encounter for closed fracture (principal); J96.01 Acute respiratory failure with hypoxia; E27.40 Unspecified adrenocortical insufficiency; J44.9 Chronic obstructive pulmonary disease, unspecified; E03.9 Hypothyroidism, unspecified; F32.A Depression, unspecified; G43.909 Migraine, unspecified, not intractable, without status migrainosus; F41.9 Anxiety disorder, unspecified; K21.9 Gastro-esophageal reflux disease without esophagitis; F03.90 Unspecified dementia, unspecified severity, without behavioral disturbance, psychotic disturbance, mood disturbance, and anxiety; Z66 Do not resuscitate; I10 Essential (primary) hypertension; E78.5 Hyperlipidemia, unspecified; G47.33 Obstructive sleep apnea (adult) (pediatric); M19.90 Unspecified osteoarthritis, unspecified site; D72.829 Elevated white blood cell count, unspecified; D64.9 Anemia, unspecified; E87.6 Hypokalemia; Z85.118 Personal history of other malignant neoplasm of bronchus and lung; Z99.81 Dependence on supplemental oxygen; Z20.822 Contact with and (suspected) exposure to COVID-19
CPT/HCPCS: 99223-AI; 99232-AI; 99239; A4314; A9284; C1713; C1776; J0690; J2270; J2370; J2704; J2795; J2920; J3010; J3475; J3480; J7030; J7050; J7120

== ENCOUNTER → 2021-09-30 | Outpatient (CLI) | payer MEDICARE, MEDICAID ==
[~2021-09-30] MED LIST changes: +ANTACID EXTRA750 M1 PO; +ANTI-DIARRHEAL2 MG PO; +ASPI325T6 PO; +CORTEF 20MG TAB20 MG PO; +DULCOLAX S10 MG/SUPP RC; +DULCOLAX STOOL100 MG PO; +DUO-KAPS1 CAP PO; +GOOD NEIGH1200 MG/15; +LASIX 20MG TABL20 MG PO; +MYLANTA COAT-C355 ML; +NYSTATIN OR100 MU/ML; +OSCAL 500 TAB500 MG PO; +PULMICORT0.5 MG/2 M IH; +REMERON 15M15 MG/TA1 PO; +RISPERDAL 1M1 MG/TAB PO; +VERELAN180 MG PO; +VITAMIN C500 MG PO
[2021-09-30 16:40] LABS: BASO % 0.3 % (0.0-2.0); EOS # 0.1 K/mm3 (0.0-0.7); EOS % 1.2 % (0.0-4.0); GRAN # 7.1 K/mm3 (1.4-6.5); GRAN % 70.8 % (42.2-75.2); HEMATOCRIT 33.6 % (37.0-47.0); HEMOGLOBIN 9.8 g/dl (12.5-16.0); LYMPH % 19.8 % (20.0-51.0); MEAN CELL VOLUME 83 fl (80.0-100.0); MEAN CORPUSCULAR HEMOGLOBIN 24 pg (27-31); MEAN CORPUSCULAR HGB CONC 29 g/dl (33.0-37.0); MEAN PLATELET VOLUME 11.3 fl (7.4-10.4); MONO # 0.8 K/mm3 (0.1-0.6); MONO % 7.6 % (1.7-9.3); PLATELET COUNT 296 K/mm3 (130-400); RED BLOOD COUNT 4.05 M/mm3 (4.10-5.30)
[2021-09-30 16:42] LABS: ALBUMIN 3.6 gm/dL (3.4-4.8); BILIRUBIN,TOTAL 0.2 mg/dL (0.2-1.2); CREATININE, serum 0.88 mg/dL (0.57-1.11); POTASSIUM 4.1 mmol/L (3.5-4.5)
[2021-09-30 16:49] LABS: THYROID STIMULATING HORMONE 0.444 uIU/mL (0.350-4.940)
== END ==
LOC: ZCOL.LAB 16:04
PROVIDERS: Internal Medicine
DX: E87.6 Hypokalemia (principal); C34.90 Malignant neoplasm of unspecified part of unspecified bronchus or lung; E03.9 Hypothyroidism, unspecified

== ENCOUNTER → 2021-11-08 | Outpatient (CLI) | payer MEDICARE, MEDICAID ==
[2021-11-08 13:30] LABS: BASO # 0.1 K/mm3 (0.0-0.2); BASO % 0.5 % (0.0-2.0); EOS # 0.1 K/mm3 (0.0-0.7); EOS % 0.7 % (0.0-4.0); GRAN # 10.6 K/mm3 (1.4-6.5); GRAN % 85.6 % (42.2-75.2); HEMOGLOBIN 11.4 g/dl (12.5-16.0); MEAN CELL VOLUME 88 fl (80.0-100.0); MEAN CORPUSCULAR HEMOGLOBIN 26 pg (27-31); MEAN CORPUSCULAR HGB CONC 30 g/dl (33.0-37.0); MEAN PLATELET VOLUME 11.3 fl (7.4-10.4); MONO # 0.6 K/mm3 (0.1-0.6); MONO % 4.5 % (1.7-9.3); PLATELET COUNT 266 K/mm3 (130-400); RED BLOOD COUNT 4.33 M/mm3 (4.10-5.30); REDCELL DISTRIBUTION WIDTH-CV 20.3 % (11.5-14.5)
== END ==
LOC: ZCOL.LAB 12:16
PROVIDERS: Internal Medicine
DX: D64.9 Anemia, unspecified (principal)

== ENCOUNTER → 2022-02-06 | Outpatient (CLI) | payer MEDICARE, MEDICAID ==
[2022-02-06 16:00] LABS: BASO # 0.1 K/mm3 (0.0-0.2); BASO % 0.7 % (0.0-2.0); EOS # 0.1 K/mm3 (0.0-0.7); EOS % 0.9 % (0.0-4.0); GRAN # 9.4 K/mm3 (1.4-6.5); GRAN % 76.9 % (42.2-75.2); HEMATOCRIT 39.6 % (37.0-47.0); HEMOGLOBIN 12.4 g/dl (12.5-16.0); LYMPH # 1.8 K/mm3 (1.2-3.4); MEAN CELL VOLUME 95 fl (80.0-100.0); MEAN CORPUSCULAR HEMOGLOBIN 30 pg (27-31); MEAN CORPUSCULAR HGB CONC 31 g/dl (33.0-37.0); MEAN PLATELET VOLUME 11.3 fl (7.4-10.4); MONO # 0.7 K/mm3 (0.1-0.6); MONO % 5.8 % (1.7-9.3); PLATELET COUNT 256 K/mm3 (130-400); RED BLOOD COUNT 4.17 M/mm3 (4.10-5.30); REDCELL DISTRIBUTION WIDTH-CV 14.5 % (11.5-14.5)
[2022-02-06 16:20] LABS: ALBUMIN 3.7 gm/dL (3.4-4.8); BILIRUBIN,TOTAL 0.2 mg/dL (0.2-1.2); CALCIUM 9.3 mg/dL (8.4-10.2); CREATININE, serum 1.02 mg/dL (0.57-1.11); POTASSIUM 5.1 mmol/L (3.5-4.5)
== END ==
LOC: ZCOL.LAB 15:45
PROVIDERS: Internal Medicine
DX: E27.49 Other adrenocortical insufficiency (principal); C34.90 Malignant neoplasm of unspecified part of unspecified bronchus or lung

== ENCOUNTER → 2022-09-08 | Outpatient (REF) | payer MEDICARE, MEDICAID | LOC: ZCOL.LAB 13:28 | DX: R52 Pain, unspecified (principal); R06.02 Shortness of breath; R09.89 Other specified symptoms and signs involving the circulatory and respiratory systems ==

== ENCOUNTER → 2022-09-10 | Outpatient (REF) | payer MEDICARE, MEDICAID ==
[2022-09-10 15:51] LABS: ALANINE AMINOTRANSFERASE 32 U/L (0-55); ALBUMIN 3.7 gm/dL (3.4-4.8); ALKALINE PHOSPHATASE 117 U/L (40-150); ANION GAP 14 mmol/L (7-16); AST,SGOT 37 U/L (5-34); BASO # 0.1 K/mm3 (0.0-0.2); BASO % 0.4 % (0.0-2.0); BILIRUBIN,TOTAL 1.3 mg/dL (0.2-1.2); BLOOD UREA NITROGEN 15 mg/dL (10-20); CALCIUM 9.7 mg/dL (8.4-10.2); CARBON DIOXIDE 37 mmol/L (23-31); CREATININE, serum 0.92 mg/dL (0.57-1.11); EOS # 0.2 K/mm3 (0.0-0.7); EOS % 1.4 % (0.0-4.0); GLUCOSE 168 mg/dL (70-99); GRAN # 10.4 K/mm3 (1.4-6.5); HEMATOCRIT 41.3 % (37.0-47.0); HEMOGLOBIN 13.4 g/dl (12.5-16.0); LYMPH % 14.6 % (20.0-51.0); MEAN CELL VOLUME 101 fl (80.0-100.0); MEAN CORPUSCULAR HEMOGLOBIN 33 pg (27-31); MEAN CORPUSCULAR HGB CONC 32 g/dl (33.0-37.0); MEAN PLATELET VOLUME 11.4 fl (7.4-10.4); MONO # 0.9 K/mm3 (0.1-0.6); MONO % 6.9 % (1.7-9.3); PLATELET COUNT 236 K/mm3 (130-400); RED BLOOD COUNT 4.09 M/mm3 (4.10-5.30); REDCELL DISTRIBUTION WIDTH-CV 15.2 % (11.5-14.5); SODIUM 138 mmol/L (136-145); THYROID STIMULATING HORMONE 0.446 uIU/mL (0.350-4.940); TOTAL PROTEIN 8.1 gm/dL (6.2-8.1); TROPONIN-I < 0.010 ng/mL (0.00-0.033)
[2022-09-10 15:53] LABS: CHLORIDE 87 mmol/L (98-107)
[2022-09-10 15:54] LABS: POTASSIUM 2.9 mmol/L (3.5-4.5)
== END ==
LOC: ZCOL.LAB 15:14
PROVIDERS: Internal Medicine
DX: E87.6 Hypokalemia (principal); C34.90 Malignant neoplasm of unspecified part of unspecified bronchus or lung; E03.9 Hypothyroidism, unspecified

== ENCOUNTER → 2022-09-11 | Outpatient (REF) | payer MEDICARE, MEDICAID ==
[2022-09-11 18:44] LABS: CALCIUM 9.3 mg/dL (8.4-10.2); CREATININE, serum 0.73 mg/dL (0.57-1.11); POTASSIUM 3.2 mmol/L (3.5-4.5)
== END ==
LOC: ZCOL.LAB 18:41
PROVIDERS: Internal Medicine
DX: E87.6 Hypokalemia (principal)

== ENCOUNTER → 2022-09-12 | Outpatient (CLI) | payer MEDICARE, MEDICAID | LOC: ZCOL.LAB 19:11 | DX: E87.6 Hypokalemia (principal); C34.90 Malignant neoplasm of unspecified part of unspecified bronchus or lung; E03.9 Hypothyroidism, unspecified ==

== ENCOUNTER → 2022-10-12 | Outpatient (CLI) | payer MEDICARE, MEDICAID ==
[2022-10-12 21:30] LABS: COLLECTION METHOD CATHETER
[2022-10-12 22:02] LABS: URINE APPEARANCE Cloudy (CLEAR/HAZY); URINE BLOOD 3+ (NEGATIVE); URINE COLOR Yellow (YELLOW); URINE GLUCOSE Negative (NEGATIVE); URINE KETONE Negative (NEGATIVE); URINE NITRATE Negative (NEGATIVE); URINE PROTEIN(semi-quant) 1+ (NEGATIVE); URINE UROBILINOGEN 0.2 E.U/dL (0.2-1.0)
[2022-10-12 22:21] LABS: AMORPHOUS CRYSTAL Present (NOT PRESENT); MUCOUS Present (NOT PRESENT); SQUAMOUS EPITHELIAL 0-2 /hpf (0-10); URINE BACTERIA Occasional /hpf (NONE SEEN); URINE RBC >50 /hpf (0-2)
== END ==
LOC: ZCOL.LAB 21:02
PROVIDERS: Internal Medicine
DX: N39.0 Urinary tract infection, site not specified (principal); R31.0 Gross hematuria

== ENCOUNTER → 2023-10-29 | Outpatient (CLI) | payer MEDICARE, MEDICAID | LOC: COL.RAD 09:01 | DX: K80.67 Calculus of gallbladder and bile duct with acute and chronic cholecystitis with obstruction (principal) ==

== ENCOUNTER 2023-11-14 14:18 | Emergency (ER) | payer MEDICARE, MEDICAID ==
[~2023-11-14] VITALS: Ht 162.6 cm; Wt 64.1 kg
[2023-11-14 14:26] VITALS: TEMP 98.6
[2023-11-14] MEDS ORDERED: NS 1,000 ML IV ONE (14:45)
[2023-11-14 15:00] LABS: BASO % 0.3 % (0.0-2.0); EOS # 0.1 K/mm3 (0.0-0.7); EOS % 0.5 % (0.0-4.0); GRAN # 6.7 K/mm3 (1.4-6.5); GRAN % 66.8 % (42.2-75.2); HEMATOCRIT 40.7 % (37.0-47.0); HEMOGLOBIN 12.7 g/dl (12.5-16.0); LYMPH # 2.2 K/mm3 (1.2-3.4); MEAN CELL VOLUME 94 fl (80.0-100.0); MEAN CORPUSCULAR HEMOGLOBIN 29 pg (27-31); MEAN CORPUSCULAR HGB CONC 31 g/dl (33.0-37.0); MEAN PLATELET VOLUME 10.7 fl (7.4-10.4); MONO % 9.9 % (1.7-9.3); PLATELET COUNT 206 K/mm3 (130-400); RED BLOOD COUNT 4.32 M/mm3 (4.10-5.30); REDCELL DISTRIBUTION WIDTH-CV 13.4 % (11.5-14.5)
[2023-11-14 15:27] LABS: BILIRUBIN,TOTAL 0.4 mg/dL (0.2-1.2); C-REACTIVE PROTEIN 4.4 mg/dL (0.00-0.50); CALCIUM 9.6 mg/dL (8.4-10.2); CREATININE, serum 0.84 mg/dL (0.57-1.11); POTASSIUM 3.2 mEq/L (3.5-4.5); TOTAL PROTEIN 7.1 g/dl (6.2-8.1)
[2023-11-14] MEDS ORDERED: Iohexol 300 - 100 ML VIAL IV ONE (16:04)
[2023-11-14] MEDS ORDERED: NS 100 ML IV SCH (16:04)
[2023-11-14 16:57] LABS: COLLECTION METHOD CLEAN CATCH
[2023-11-14 17:01] LABS: PH 7.5 (5.0-8.5); URINE APPEARANCE CLEAR (CLEAR/HAZY); URINE BLOOD NEGATIVE (NEGATIVE); URINE COLOR YELLOW (YELLOW); URINE GLUCOSE NEGATIVE (NEGATIVE); URINE KETONE NEGATIVE (NEGATIVE); URINE NITRATE NEGATIVE (NEGATIVE); URINE PROTEIN(semi-quant) NEGATIVE (NEGATIVE); URINE UROBILINOGEN 0.2 E.U/dL (0.2-1.0)
[2023-11-14] MEDS ORDERED: Morphine Sulfate 15 MG Immediate-Release TAB PO ONE (17:30)
[2023-11-14 18:01] VITALS: BP 107/74; PULSE 92
== END 2023-11-14 18:16 | disposition home or self-care (01) ==
LOC: COL.ER 14:18
PROVIDERS: Emergency Medicine
DX: K80.50 Calculus of bile duct without cholangitis or cholecystitis without obstruction (principal); I10 Essential (primary) hypertension; Z87.19 Personal history of other diseases of the digestive system; Z87.891 Personal history of nicotine dependence
CPT/HCPCS: J7030; Q9967